=== PATIENT | female | born 1950 | race Caucasian/White ===

== ENCOUNTER 2024-09-06 14:11 | Inpatient (IN) | payer OTHER, SELFPAY ==
[2024-09-06] VITALS (10 sets, daily range): BP systolic 133–194; BP diastolic 55–99; BMI 33.2; BMI 31.6
[2024-09-06] MEDS: ZOFRAN 4 MG PO (08:32)
--- NOTE | 2024-09-06 08:56 | ED.GENMED ---
History of Present Illness
General
Chief Complaint: Allergic Reaction
Time Seen by Provider: 09/06/24 08:06
History of Present Illness
History of Present Illness:
73-year-old female with history of asthma presenting for concern of allergic reaction. Patient reports that yesterday she started vomiting around 6 PM. Notes that she ate lunch around 1 PM and afterwards started to feel ill, followed by vomiting.
She was concerned because this morning she felt like her lip was getting swollen and she thought that maybe she was having allergic reaction to Levaquin which she had been taking for a wound on her right lower extremity. However she has been taking
this medication for the last week and finished the medication today. The wound has completely healed. She does note some dyspnea. Notes persistent nausea and vomiting. Notes some abdominal discomfort. She is unsure whether her symptoms are from
something she ate at lunch. Denies chest pain. Denies any recent fever. Denies additional acute medical complaints
Past History
Past History
ED Past Medical History: Asthma and HTN
Social History
Personal:
Living: with family
Employment: Retired
Phy Exam
Physical Exam
Physical Exam:
General: Well-appearing, no clinical signs of dehydration, nontoxic and in no acute distress
HEENT: protecting airway, no lip swelling, no tongue swelling, no erythema
Neck: appears supple
CV: Tachycardia, regular rhythm, no evidence of cyanosis
Resp: No accessory muscle use, no increased work of breathing, lungs clear to auscultation bilaterally
Abd: Soft and non-distended, no tenderness to palpation
Extremities: No deformities, no swelling, no erythema. No wounds to lower extremities
Neuro: alert, no focal neurologic deficit
: deferred
Rectal: deferred
Psych: Normal affect
Skin: Intact
Course
Orders/Labs/Results
Orders:
Orders
09/06/24 08:27
Ondansetron HCl [Zofran] 4 mg PO NOW STA
09/06/24 09:02
Prochlorperazine [Compazine] 10 mg IM NOW STA
09/06/24 09:31
Ipratropium/Albuterol Sulfate [Duoneb] 3 ml INH R NOW STA
CR Chest - 2 Views Urgent
Comment:
Reason For Exam: SOB
09/06/24 10:18
CT Abd/pel Without Iv Or Oral Urgent
Comment:
Reason For Exam: nausea and vomiting, refusing and IV
09/06/24 11:44
NG Tube [GI tube insertion- Treatment] ONCE
Complete Blood Count/With Diff Urgent
Comprehensive Metabolic Panel Urgent
Lorazepam [Ativan] 1 mg PO NOW STA
Vital Signs
Initial and Last Documented VS:
Initial Vital Signs
Pulse Resp BP Pulse Ox
111 16 194/95 94
09/06/24 07:51 09/06/24 07:51 09/06/24 07:51 09/06/24 07:51
Last Documented Vital Signs
Temp Pulse Resp BP Pulse Ox
98.1 F 108 24 181/88 98
09/06/24 08:06 09/06/24 10:42 09/06/24 10:42 09/06/24 10:42 09/06/24 10:42
MDM/Problems Addressed
MDM/Problems Addressed:
73-year-old female with history of asthma presenting with nausea and vomiting. Vital signs on arrival are significant for hypertension and tachycardia.
On exam, patient is in no acute distress, is actively spitting up, however no emesis. She does have mildly dry mucous membranes. However, no swelling to the lips or tongue. No erythema or skin breakdown. Unremarkable cardiac and pulmonary exam
with the exception of mild tachycardia. No tenderness to the abdomen. Without present concern for acute allergic reaction or anaphylaxis. Patient notes that the antibiotic that she took, has been taking for an entire week. Do not suspect that
that is the culprit. Reports she started to feel unwell after she ate lunch. Do suspect possible enteritis and foodborne illness. Without concern for intra-abdominal process or infection. Given her persistent nausea, advising IV fluids and IV
Zofran with screening laboratory analysis. Patient is adamantly refusing, reports fear of needles. She would like to try p.o. Zofran.
10:10 -patient complaining of shortness of breath so chest x-ray obtained, shows elevated right hemidiaphragm with large hiatal hernia which could be contributing to symptoms, however layering of fluid. Cannot safely rule out a bowel obstruction.
At this time recommending a CT abdomen pelvis. Patient is adamantly refusing an IV. She notes that she would 'rather in pain and get an IV. Patient understands that CT without IV contrast is limits our ability to completely see and rule out a
bowel obstruction. She verbalized understanding.
11:45 - CT shows large sliding-type hiatal hernia with complete intrathoracic stomach and associated organoaxial volvulus of intrathoracic stomach which is markedly distended with fluid and debris suggesting an obstructive process. Will try NG
tube. Surgery made aware. Plan for admission.
*Critical Care Note
Total Time (30-74mins, 75-104mins- exclusive of procedures): Not Applicable
ED Attending Note
-
Portions of this chart may have been created with voice recognition software.� Occasional wrong word or��sound alike� substitutions may have occurred due to the inherent limitations of voice recognition software.
Discharge Plan
Departure
Referrals:
UNKNOWN - PT DOES,NOT KNOW [Family Provider] -
Interventions
Interventions:
*Risk Screen - Suicide Last Done: 09/06/24 07:51
*General Assessment Last Done: 09/06/24 07:51
*Neglect/Abuse Screening Last Done: 09/06/24 07:51
ED- Fall Risk Assessment Last Done: 09/06/24 08:07
*ED COVID-19 Vaccine History Last Done: 09/06/24 08:07
ED- Cardiac Assessment Last Done: 09/06/24 08:07
ED- Pulmonary Assessment Last Done: 09/06/24 08:07
ED-Skin Assessment Last Done: 09/06/24 08:11
Discharge Date and Time
Print Language: AZERBAIJANI
[2024-09-06] MEDS: COMPAZINE 10 MG IM (09:19)
[2024-09-06] MEDS: DUONEB 3 ML INH (09:33)
[2024-09-06] MEDS: ATIVAN 1 MG PO (11:50)
--- NOTE | 2024-09-06 12:25 | CON.GS ---
Addendum entered and electronically signed by Hernan Bermudez MD 09/06/24 15:25:
I saw and examined the patient.
The [employer] Supervisor's note was reviewed and I agree with the note.
Comment: 73F with acute onset abd pain a/w n/v that began last night. No prior similar episodes, reports no hospital visits in 40 years. She has taken PPI in the past for reflux but stopped due to concerns about risk of prison use and has been
doing well with a probiotic in the meantime. NGT placed in ED with return of 850cc dark burgundy fluid with immediate relief of symptoms. During my encounter she reports resolution of pain and nausea. Abd exam is benign. She requests throat
lozenge/spray for tube irritation. I will order, and also add protonix BID for now given the character of the ngt output. Tentative plan for decompression tonight, UGI tomorrow. I advised her going fwd the PPI is probably more benefit than risk in
her case and [facility] would likely benefit from going back on it. All other care as per primary team.
Original Note:
Consultation
-
Date/Time Consultation Requested: 09/06/24 1148
Requesting Provider: Otilia
Performing Provider: Cary Bermudez
Medical History
-
Chief Complaint: upper abdominal pain, cough
History of Present Illness:
Ms Landry is a 73 yo female who has a h/o asthma, OAB, GERD and htn who recently completed a course of abx for cellulitis and after her follow up appointment with her PCP yesterday went out for lunch with her spouse. She had a cup of soup with
half of a turkey club sandwich and shortly after developed diaphragmatic discomfort with vomiting. She notes recurrent vomiting throughout the rest of the day and today as well causing her to present through the ED for evaluation. She notes that she
often feels she is regurgitating food and has been on antacids for symptomatic control. She complains of a dry cough currently but denies SOB. She had one episode of diarrhea this morning. She denies fevers or chills.
Past Medical History
Past Medical History: Asthma, GERD, HTN and Other (oab, cellulitis)
Past Surgical History: Orthopedic (ankle surgery as a child) and Other (wisdom teeth)
Social History
Tobacco: Non-Smoker
Alcohol: None
Personal:
Living: With Family
Allergies / Home Medications
Allergy/AdvReac Type Severity Reaction Status Date / Time
Penicillins Allergy Unknown Verified 09/06/24 07:50
Shellfish *RETIRED-05/08/12 Allergy Unknown Verified 09/06/24 07:50
[Shellfish]
peanuts Allergy Unknown Uncoded 09/06/24 07:50
tree nuts Allergy Nausea / Uncoded 09/06/24 07:50
Vomiting
�Medication �Instructions �Recorded �Confirmed �Type
Fermented Beets 1 cap PO DAILY 09/06/24 09/06/24 History
albuterol sulfate 90 mcg/actuation 2 puff inhalation R Q6HPRN PRN SOB 09/06/24 09/06/24 History
aerosol inhaler
ascorbic acid (vitamin C) 500 mg 500 mg PO DAILY 09/06/24 09/06/24 History
tablet (Vitamin C)
azelastine 137 mcg (0.1 %) nasal 1 spray intranasal BID 09/06/24 09/06/24 History
spray
biotin 5 mg tablet 5 mg PO DAILY 09/06/24 09/06/24 History
calcium carbonate 500 mg PO DAILY 09/06/24 09/06/24 History
cholecalciferol (vitamin D3) 25 25 mcg PO DAILY 09/06/24 09/06/24 History
mcg (1,000 unit) tablet (Vitamin
D3)
diphenhydramine HCl 25 mg capsule 25 mg PO BID 09/06/24 09/06/24 History
(Benadryl)
elderberry fruit 200 mg capsule 200 mg PO DAILY 09/06/24 09/06/24 History
fluticasone furoate 100 1 inh inhalation R DAILY 09/06/24 09/06/24 History
mcg/actuation blister powder for
inhalation (Arnuity Ellipta)
fluticasone propionate 50 1 spray intranasal BID 09/06/24 09/06/24 History
mcg/actuation nasal
spray,suspension
lutein 20 mg capsule 20 mg PO DAILY 09/06/24 09/06/24 History
lysine 500 mg tablet 500 mg PO DAILY 09/06/24 09/06/24 History
naproxen sodium 220 mg tablet 220 mg PO DAILY 09/06/24 09/06/24 History
(Aleve)
pseudoephedrine-guaifenesin ER 120 1 tab PO Q12H 09/06/24 09/06/24 History
mg-1,200 mg tab,extend release
12hr (Mucinex D Maximum Strength)
spironolactone 25 mg tablet 25 mg PO DAILY 09/06/24 09/06/24 History
tolterodine 4 mg capsule,extended 4 mg PO DAILY 09/06/24 09/06/24 History
release 24 hr
vit C 30 mg-s.hendrickson 250 mg-celery 1 cap PO DAILY 09/06/24 09/06/24 History
seed 75 mg-grape seed extrt
capsule (Tart Hendrickson)
Review of Systems
-
A 10 point review of systems was completed, and was negative except as per HPI.
Physical Exam
Vital Signs
Temp Pulse Resp BP Pulse Ox
98.1 F 108 20 174/99 99
09/06/24 08:06 09/06/24 11:57 09/06/24 11:57 09/06/24 11:57 09/06/24 11:57
09/05/24 09/06/24 09/07/24
06:59 06:59 06:59
Actual Weight 81 kg
Body Mass Index (BMI) 33.2
Physical Exam
General: Well Developed and Well Nourished
HEENT: Moist Mucous Membranes
Respiratory: Non Labored Respirations
GI: Soft, Non Distended and Tender (upper epigastric area)
Skin: Warm and Dry
Neuro: Awake, Alert and AO x 3
Psych: Calm
Data Reviewed
-
CT Scan: Image Personally Visualized and interpreted, Report Reviewed by me, Discussed with Physician, Discussed with Nurse, Discussed with Patient and Discussed with Family
Labs: Labs Reviewed by me, Discussed with Physician, Discussed with Patient and Discussed with Family
Old Records: Reviewed
Assessment / Plan
-
Ms Landry is a 73 yo female who has a h/o asthma, OAB, GERD and htn who recently completed a course of abx for cellulitis who developed nausea and vomiting after lunch yesterday with epigastric pain presenting for evaluation. CT imaging reviewed
with large hiatal hernia with complete intrathoracic stomach and associated volvulus with distention debris suggestive of GOO.
Afebrile with mild tachycarida. BP elevated. She initially declined labs, but is now agreeable to having them preformed.
--Would recommend NGT placement for gastric decompression, patient is agreeable to proceeding. Check XR after placement.
--Will plan UGI imaging after decompression
--NPO except ice chips for comfort. Would convert necessary PO medications to IV
--Discussed operative hiatal hernia repair vs gastropexy as options for definitive management. Timing TBD pending patient course.
[2024-09-06 13:18] LABS: % Basophils 0.1 % (0-2); % Immature Granulocytes 0.5 % (0-0.5); % Lymphocytes 6.5 % (20.5-51.1); % Monocytes 7.8 % (1.7-9.3); % Neutrophils 85.1 % (42.2-75.2); Absolute Immature Granulocytes 0.1 10^3/uL (0-0.05); Absolute Monocytes 1.2 10^3/uL (0.1-0.6); Absolute Neutrophils 12.8 10^3/uL (1.4-6.5); Hematocrit 45.9 % (37.0-47.0); Hemoglobin 16.1 g/dL (12.0-16.0); Mean Corp Hgb Conc. 35.1 g/dL (33.0-37.0); Mean Corpuscular Hgb 30.6 pg (27.0-31.0); Mean Corpuscular Volume 87.3 fL (81.0-99.0); Mean Platelet Volume 9.9 fL (7.4-10.4); Nucleated Red Blood Cells % 0 %; Platelet Count 328 10^3/uL (130-400); Red Blood Cell Count 5.26 10^6/uL (4.20-5.40); Red Cell Dist. Width 13.3 % (11.5-14.5)
--- NOTE | 2024-09-06 14:02 | HPS.HSE ---
Family Physician
-
Family Physician: NOT KNOW UNKNOWN - PT DOES
Chief Complaint
-
Nausea and vomiting.
History of Present Illness
Patient is a 73-year-old female with history of asthma, GERD, hypertension who presented to the emergency room with acute onset of nausea and vomiting. Patient recently completed course of antibiotics for cellulitis. She developed acute onset of
nausea and vomiting after having lunch with soup and sandwich. In addition to that she also developed upper abdominal pain and discomfort. She denies any fever. She admits to occasional and increased frequency of gastrointestinal symptoms
including reflux. She complains of occasional dry cough, denies any fever. Denies any diarrhea.
With workup in the emergency room patient had chest x-ray which showed air-fluid levels above the diaphragm. Follow-up CT scan of the abdomen, findings were consistent with large sliding hernia with complete intrathoracic stomach associated
organoaxial volvulus of intrathoracic stomach which was markedly distended with fluid and debris suggestive of obstructive process.
NG tube was placed urgently while in the ED with significant relief of symptoms and ongoing high output.
Medical History
Past Medical History
Past Medical History: Reports Asthma, GERD and HTN
Past Surgical History: Reports None
Social History
Tobacco: Non-smoker
Alcohol: None
Family History
Family History: Not pertinent
Allergies / Home Medications
Allergies reflects when Allergies were last updated in [facility].
Home Medications with original date entered in [facility]
Allergy/Medication List:
Allergies
Allergy/AdvReac Type Severity Reaction Status Date / Time
Penicillins Allergy Unknown Verified 09/06/24 07:50
Shellfish *RETIRED-05/08/12 Allergy Unknown Verified 09/06/24 07:50
[Shellfish]
peanuts Allergy Unknown Uncoded 09/06/24 07:50
tree nuts Allergy Nausea / Uncoded 09/06/24 07:50
Vomiting
Home Medications
Fermented Beets 1 cap PO DAILY 09/06/24
albuterol sulfate 90 mcg/actuation aerosol inhaler 2 puff inhalation R Q6HPRN PRN SOB 09/06/24
ascorbic acid (vitamin C) 500 mg tablet (Vitamin C) 500 mg PO DAILY 09/06/24
azelastine 137 mcg (0.1 %) nasal spray 1 spray intranasal BID 09/06/24
biotin 5 mg tablet 5 mg PO DAILY 09/06/24
calcium carbonate 500 mg PO DAILY 09/06/24
cholecalciferol (vitamin D3) 25 mcg (1,000 unit) tablet (Vitamin D3) 25 mcg PO DAILY 09/06/24
diphenhydramine HCl 25 mg capsule (Benadryl) 25 mg PO BID 09/06/24
elderberry fruit 200 mg capsule 200 mg PO DAILY 09/06/24
fluticasone furoate 100 mcg/actuation blister powder for inhalation (Arnuity Ellipta) 1 inh inhalation R DAILY 09/06/24
fluticasone propionate 50 mcg/actuation nasal spray,suspension 1 spray intranasal BID 09/06/24
lutein 20 mg capsule 20 mg PO DAILY 09/06/24
lysine 500 mg tablet 500 mg PO DAILY 09/06/24
naproxen sodium 220 mg tablet (Aleve) 220 mg PO DAILY 09/06/24
pseudoephedrine-guaifenesin ER 120 mg-1,200 mg tab,extend release 12hr (Mucinex D Maximum Strength) 1 tab PO Q12H 09/06/24
spironolactone 25 mg tablet 25 mg PO DAILY 09/06/24
tolterodine 4 mg capsule,extended release 24 hr 4 mg PO DAILY 09/06/24
vit C 30 mg-s.chandra 250 mg-celery seed 75 mg-grape seed extrt capsule (Tart Chandra) 1 cap PO DAILY 09/06/24
Review of Systems
-
A 12 point ROS was completed and negative except as noted: Yes
Respiratory: Reports See HPI
Cardiac: Reports No Symptoms
Abdomen/GI: Reports See HPI
Physical Exam
Vital Signs
Vital Signs
Temp Pulse Resp BP Pulse Ox
98.1 F 108 20 174/99 99
09/06/24 08:06 09/06/24 11:57 09/06/24 11:57 09/06/24 11:57 09/06/24 11:57
Physical Exam
General: Well Developed, Well Nourished and No Apparent Distress
HEENT: NormoCephalic, Moist mucous membranes and Atraumatic
Respiratory: Clear
Cardiac: S1/S2 and Regular Rhythm; No Murmur or Rub
GI: Soft, Non Tender, Non Distended, Normal Bowel Sounds and Other (NG tube is in place with bilious fluid output); No Organomegaly
Rectal: Deferred by Provider
Musculoskeletal: No Clubbing, No Cyanosis and No Edema
Skin: No Rash
Neuro: Nonfocal/grossly intact
Laboratory Results
-
09/06/24 13:02
Laboratory Results
Total Bilirubin Cancelled 09/06/24 13:02
AST Cancelled 09/06/24 13:02
ALT Cancelled 09/06/24 13:02
Alkaline Phosphatase Cancelled 09/06/24 13:02
Impression/Plan
-
IMPRESSION:
Presentation with nausea and vomiting.
Large sliding-type hiatal hernia with complete intrathoracic stomach and associated organoaxial volvulus of intrathoracic stomach with gastric outlet obstruction.
Leukocytosis
Other conditions:
GERD
Asthma.
Hypertension.
Overactive bladder
Obesity with BMI of 33
PLAN:
Acute gastric outlet obstruction secondary to large sliding-type hiatal hernia.
NG tube in place
Surgical consult
Further evaluation with upper gastrointestinal series
Keep n.p.o.
IV PPI
Aspiration precautions
Leukocytosis likely secondary to above
No visible infiltrates on the chest x-ray, although suboptimal study.
Monitor closely off antibiotics
Mild intermittent asthma.
No evidence for exacerbation.
Continue albuterol
Hypertension
Hold Aldactone acutely.
Overactive bladder.
Hold tolterodine acutely.
Full code
DVT prophylaxis subcu heparin
[2024-09-06 14:30] LABS: Blood Urea Nitrogen 20 mg/dl (7-17); Calcium 10.1 mg/dl (8.4-10.2); Carbon Dioxide 35 mmol/L (22-30); Chloride 101 mmol/L (98-107); Estimated Creatinine Clearance 43 ml/min; Glucose 139 mg/dl (70-99); Sodium 147 mmol/L (135-145)
[2024-09-06] MEDS: OCEAN, SALINE MIST 2 SPRAYS NASAL (17:25)
[2024-09-06] MEDS: NSS 1000 IV (17:27)
[2024-09-06] MEDS: ProAIR HFA INHALER 2 PUFF INH (17:29)
[2024-09-06] MEDS: CHLORASEPTIC/SORE THROAT SPRAY 2 SPRAY PO (17:29)
--- NOTE | 2024-09-06 20:05 | PTCARENOTE ---
patient arrived from ED to [facility]. pt is AAOx3, very pleasant, NGT to R nare in place, attached to wall suction per order. drsg changed to healing wound on R oneil. plan of care explained to patient. Assessment ongoing.
[2024-09-06] MEDS: HEPARIN 5000 UNITS SC (20:56)
[2024-09-06] MEDS: NSS (PRESERVATIVE FREE) 10 ML IV (20:56)
[2024-09-06] MEDS: PROTONIX IV 40 MG IV (20:56)
[2024-09-07] MEDS: NSS 1000 IV ×2 (04:12→13:43)
--- NOTE | 2024-09-07 06:41 | PTCARENOTE ---
patient currently refusing morning lab work.
[2024-09-07 07:25] VITALS: BP 144/76
[2024-09-07] MEDS: HEPARIN 5000 UNITS SC ×2 (07:54→20:05)
[2024-09-07] MEDS: PROTONIX IV 40 MG IV ×2 (07:54→20:06)
[2024-09-07] MEDS: NSS (PRESERVATIVE FREE) 10 ML IV ×2 (07:54→20:06)
[2024-09-07] MEDS: OCEAN, SALINE MIST 2 SPRAYS NASAL (07:54)
[2024-09-07] MEDS: ProAIR HFA INHALER 2 PUFF INH (09:24)
--- NOTE | 2024-09-07 09:32 | W.PN.GS2 ---
Addendum entered and electronically signed by Zach Daniel MD 09/07/24 14:58:
Patient seen and examined with AUTOMATIC ENGRAVER this a.m.
Nausea/vomiting resolved.
No epigastric abdominal pain or substernal chest pain.
Ongoing shortness of breath
AFVSS
NAD AAOx3
ABD: Soft, nondistended, nontender
NG tube with light gastric contents
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
She has responded well to NG tube decompression. Continue n.p.o. and decompression
Will need follow-up contrast imaging study to evaluate for resolution of gastric outlet obstruction before considering removal of NG tube or p.o. challenge
Given the size of this paraesophageal hernia and degree that it is occupying the right chest will likely refer for tertiary care surgical evaluation but await further imaging before definitive planning.
Original Note:
Today's Communication / Plan
-
Continue NGT
Assessment / Plan
-
73 yo female presenting with GOO secondary to gastric volvulus within a large PEH.
NGT placed for decompression with large volume initially and some burgundy outputs in ED, now slowed with yellow gastric contents noted
AFVSS
Labs for today pending
--Continue NGT for decompression
--NPO with ice chips for comfort
--IVF while NPO
--Will plan PO contrast study to reevaluate likely tomorrow
--Medical management as per primary team
Subjective Data
-
Date of Service: September 07, 2024
Patient seen and examined at bedside with Dr. Daniel. Denies n/v. Denies abdominal/epigastric pain. Does note some SOB.
Objective Data
-
Intake and Output
09/06/24 09/07/24 09/08/24
06:59 06:59 06:59
Intake Total 1260 / 1260
Output Total 1774
Balance -515 / -515
Intake:
IV fluids (Total) 1200 / 1200
Amount instilled into GI Tube ( 60 / 60
Total)
Gastrostomy 60 / 60
Output:
Gastrointestinal tube output ( 1774
Total)
Gastrostomy 175 / 175
Other:
Number of approximated MODERATE 2
amounts of urine
Vital Signs
Temp Pulse Resp BP Pulse Ox
98.7 F 66 16 144/76 93
09/07/24 07:25 09/07/24 09:29 09/07/24 09:29 09/07/24 07:25 09/07/24 09:29
Calcium 10.1 mg/dl (8.4-10.2) 09/06/24 14:05
Total Bilirubin Cancelled 09/06/24 14:05
AST Cancelled 09/06/24 14:05
ALT Cancelled 09/06/24 14:05
Alkaline Phosphatase Cancelled 09/06/24 14:05
Total Protein Cancelled 09/06/24 14:05
Albumin Cancelled 09/06/24 14:05
Physical Exam
-
NAD
ABD soft, nt, nd
Gastric contents from NGT
Patient has a charlton catheter: No
Patient has a central line: No
[2024-09-07] MEDS: NON-FORMULARY ITEM 1 UNIT NASAL ×3 (10:34→20:06)
--- NOTE | 2024-09-07 11:48 | W.PN.HOSP.TC ---
Today's Communication/Plan
-
Monitor vitals
See plan
Awaiting labs
Continue with NG tube
Surgery following
Okay for ice chips
Assessment / Plan
Assessment / Plan
General: Well Developed, Well Nourished and No Apparent Distress
HEENT: NormoCephalic, Moist mucous membranes and Atraumatic
Respiratory: Clear
Cardiac: S1/S2 and Regular Rhythm; No Murmur or Rub
GI: Soft, Non Tender, Non Distended, Normal Bowel Sounds and Other (NG tube is in place with bilious fluid output)
Musculoskeletal: No Edema
Neuro: Nonfocal/grossly intact
IMPRESSION:
Presentation with nausea and vomiting.
Large sliding-type hiatal hernia with complete intrathoracic stomach and associated organoaxial volvulus of intrathoracic stomach with gastric outlet obstruction.
Leukocytosis
Other conditions:
GERD
Asthma.
Hypertension.
Overactive bladder
Obesity with BMI of 33
PLAN:
Acute gastric outlet obstruction secondary to large sliding-type hiatal hernia.
NG tube in place; monitor drain
Surgery following
Further evaluation with upper gastrointestinal series
Keep n.p.o. ok for ice chips
IV PPI
Aspiration precautions
Leukocytosis likely secondary to above
No visible infiltrates on the chest x-ray, although suboptimal study.
Monitor closely off antibiotics
repeat CBC today; patient refusing labs
Mild intermittent asthma.
No evidence for exacerbation.
Continue albuterol
Hypertension
Hold Aldactone acutely.
Overactive bladder.
Hold tolterodine acutely.
Full code
DVT prophylaxis subcu heparin
Anticipated Discharge: 24 - 48 hours
Subjective/Interval History
-
Date of Service: September 07, 2024
Still has output from NG tube
Objective Data
-
Labs:
Laboratory Results
09/07/24
06:00
WBC Pending
Hgb Pending
Hct Pending
Plt Count Pending
Sodium Pending
Potassium Pending
Chloride Pending
Carbon Dioxide Pending
BUN Pending
Creatinine Pending
Glucose Pending
Calcium Pending
Vital Signs:
Vital Signs
Temp Pulse Resp BP Pulse Ox
98.7 F 66 16 144/76 93
09/07/24 07:25 09/07/24 09:29 09/07/24 09:29 09/07/24 07:25 09/07/24 09:29
I&O
09/06/24 09/07/24 09/08/24
06:59 06:59 06:59
Intake Total 1260 / 1260
Output Total 1775 / 1775
Balance -515 / -515
--- NOTE | 2024-09-07 12:02 | PTCARENOTE ---
Pt continuing to refuse labwork, stated ' no' per the plebotomist upon repeat attempt. RN in to see pt. Pt stated ' it frightens me too much'. RN explained that initial blood work may not still reflect current clinical situation and accurate values
are required to determine care. RN explained with decompression, pts lose electrolytes including potassium and the importance of potassium in regulating cardiac function. Pt continuing to shake her head no and stating ' it scares me too much'.
Willard made aware. Assessment ongoing.
[2024-09-07] MEDS: DUONEB 3 ML INH ×2 (12:37→20:50)
[2024-09-07 15:10] VITALS: BP 150/79
[2024-09-07 23:40] VITALS: BP 162/80
[2024-09-08] MEDS: NSS 1000 IV ×2 (00:01→09:06)
[2024-09-08] MEDS: DUONEB 3 ML INH ×2 (04:02→08:06)
--- NOTE | 2024-09-08 07:06 | PTCARENOTE ---
patient is refusing morning lab work. patient was educated.
[2024-09-08 07:15] VITALS: BP 167/81
[2024-09-08] MEDS: ProAIR HFA INHALER 2 PUFF INH (08:07)
[2024-09-08] MEDS: NSS (PRESERVATIVE FREE) 10 ML IV ×2 (08:53→19:37)
[2024-09-08] MEDS: NON-FORMULARY ITEM 1 UNIT NASAL ×3 (08:54→19:36)
[2024-09-08] MEDS: PROTONIX IV 40 MG IV ×2 (08:54→19:37)
[2024-09-08] MEDS: HEPARIN 5000 UNITS SC ×2 (08:54→19:37)
--- NOTE | 2024-09-08 08:57 | W.PN.GS2 ---
Today's Communication / Plan
-
Follow-up imaging
Assessment / Plan
-
Assessment: 73 yo female presenting with GOO secondary to gastric volvulus within a large type IV PEH containing entire stomach as well as portions of colon.
AFVSS
Given quantity of NG tube outputs and consumption of ice chips suspect gastric outlet obstruction has been relieved with NG tube decompression
Plan: Repeat CT imaging (chest abdomen pelvis -oral contrast alone -1 cup with NG tube clamped for study; return NG tube to suction if nausea or worsening pain with oral contrast ingestion)
Include imaging of chest as initial imaging did not entirely show paraesophageal hernia due to size; will also study with oral contrast to confirm that obstructive component of paraesophageal hernia has been alleviated.
If no evidence of ongoing obstruction with CT imaging NG tube will be removed and patient will be started on a liquid diet
Surgical treatment plan (possible referral to tertiary care center for repair) pending CT imaging results and size of paraesophageal hernia which appears to be occupying most of the right chest with quite a large diaphragmatic defect.
Subjective Data
-
Date of Service: September 08, 2024
Patient seen and examined. at bedside.
Discussed with nursing.
Predominant symptom is shortness of breath
Concern regarding home medications and requesting nasal sprays
No nausea, no vomiting
Consuming ice chips
No abdominal pain
Objective Data
-
Intake and Output
09/07/24 09/08/24 09/09/24
06:59 06:59 06:59
Intake Total 1260 / 1260 2550 / 2550
Output Total 1775 / 1775 900 / 900
Balance -515 / -515 1650 / 1650
Intake:
IV fluids (Total) 1200 / 1200 2400 / 2400
Amount instilled into GI Tube ( 60 / 60 150 / 150
Total)
Gastrostomy 60 / 60 30 / 30
[place] Sump 120 / 120
Output:
Gastrointestinal tube output ( 1775 / 1775 900 / 900
Total)
Gastrostomy 175 / 175 450 / 450
[place] Sump 450 / 450
Other:
Number of approximated MODERATE 2 2
amounts of urine
Number of approximated LARGE 3
amounts of urine
Vital Signs
Temp Pulse Resp BP Pulse Ox
98.8 F 85 16 167/81 96
09/08/24 07:15 09/08/24 08:09 09/08/24 08:09 09/08/24 07:15 09/08/24 08:09
Calcium Cancelled 09/07/24 17:14
Total Bilirubin Cancelled 09/06/24 14:05
AST Cancelled 09/06/24 14:05
ALT Cancelled 09/06/24 14:05
Alkaline Phosphatase Cancelled 09/06/24 14:05
Total Protein Cancelled 09/06/24 14:05
Albumin Cancelled 09/06/24 14:05
Physical Exam
-
NAD AAOx3
NG tube to wall suction -light gastric contents
[2024-09-08 09:01] LABS: Blood Urea Nitrogen 16 mg/dl (7-17); Calcium 8.3 mg/dl (8.4-10.2); Carbon Dioxide 24 mmol/L (22-30); Chloride 112 mmol/L (98-107); Estimated Creatinine Clearance 42 ml/min; Glucose 74 mg/dl (70-99); Potassium 3.3 mmol/L (3.5-5.1); Sodium 147 mmol/L (135-145)
[2024-09-08] MEDS: OMNIPAQUE 50 ML PO (09:22)
[2024-09-08 09:42] LABS: % Basophils 0.3 % (0-2); % Eosinophils 0.7 % (0-6); % Immature Granulocytes 0.4 % (0-0.5); % Lymphocytes 15.9 % (20.5-51.1); % Monocytes 11.7 % (1.7-9.3); Absolute Eosinophils 0.1 10^3/uL (0-0.7); Absolute Lymphocytes 1.5 10^3/uL (1.2-3.4); Absolute Monocytes 1.1 10^3/uL (0.1-0.6); Absolute Neutrophils 6.5 10^3/uL (1.4-6.5); Hematocrit 39.2 % (37.0-47.0); Hemoglobin 13.1 g/dL (12.0-16.0); Mean Corp Hgb Conc. 33.4 g/dL (33.0-37.0); Mean Corpuscular Hgb 30.1 pg (27.0-31.0); Mean Corpuscular Volume 90.1 fL (81.0-99.0); Nucleated Red Blood Cells % 0 %; Red Blood Cell Count 4.35 10^6/uL (4.20-5.40); Red Cell Dist. Width 14.2 % (11.5-14.5); White Blood Cell Count 9.2 10^3/uL (4.8-10.8)
--- NOTE | 2024-09-08 10:00 | CM ---
Patient seen with today and yesterday am. Patient lives with in a 3 story home. Patient has no DME at home. Patient PCP is unchanged and she uses the [facility] on [address] in [place]. Patient states she is independent of ADL's and
IADL's prior to admission. Patient may need VN at discharge. CM will continue to follow for discharge planning needs.
Plan; home with VN vs home with no needs.
--- NOTE | 2024-09-08 10:34 | W.PN.SURGUPD ---
Surgical Update
Surgical Update
Imaging reviewed. Radiologist report pending.
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 The body of the pancreas is also within the large paraesophageal hernia. Superior extent of the paraesophageal hernia is
above the level of the right main bronchus/immediately adjacent to the akil.
Remove NG tube given radiographic confirmation of obstructive component resolved
Clear liquid diet
Given complexity of this very large type IV paraesophageal hernia would manage conservatively during this hospitalization and refer to tertiary care center for future discussions regarding consideration of operative correction.
--- NOTE | 2024-09-08 11:48 | W.PN.HOSP.TC ---
Today's Communication/Plan
-
Monitor vital signs see plan
Restart Aldactone
Clears
Replete potassium
Assessment / Plan
Assessment / Plan
General: Well Developed, Well Nourished and No Apparent Distress
HEENT: NormoCephalic, Moist mucous membranes and Atraumatic
Respiratory: Clear
Cardiac: S1/S2 and Regular Rhythm; No Murmur or Rub
GI: Soft, Non Tender, Non Distended, Normal Bowel Sounds and Other (NG tube is in place with bilious fluid output)
Musculoskeletal: No Edema
Neuro: Nonfocal/grossly intact
IMPRESSION:
Presentation with nausea and vomiting.
Large sliding-type hiatal hernia with complete intrathoracic stomach and associated organoaxial volvulus of intrathoracic stomach with gastric outlet obstruction.
Leukocytosis
Hypernatremia
Hypokalemia
Renal insufficiency, unclear if has CKD
Other conditions:
GERD
Asthma.
Hypertension.
Overactive bladder
Obesity with BMI of 33
PLAN:
Acute gastric outlet obstruction secondary to large sliding-type hiatal hernia.
Now NG tube DC'd 07/09. Started clears. Managed conservatively per surgery. Patient should follow-up with tertiary care center
Surgery following
CT with large central and right paracentral diaphragmatic hernia, decompression of stomach, atelectasis. Substernal left thyroid nodule. Patient to follow-up outpatient.
Keep n.p.o. ok for ice chips
IV PPI
Aspiration precautions
Leukocytosis likely secondary to above
No visible infiltrates on the chest x-ray, although suboptimal study.
Monitor closely off antibiotics
repeat labs today; patient refusing labs, now agreeable today.
Hyponatremia
Monitor
Mild intermittent asthma.
No evidence for exacerbation.
Continue albuterol
Hypertension
restart Aldactone
Overactive bladder.
restart tolterodine
Full code
DVT prophylaxis subcu heparin
Anticipated Discharge: 24 - 48 hours
Subjective/Interval History
-
Date of Service: September 08, 2024
denies pain
Objective Data
-
Labs:
Laboratory Results
09/07/24 09/08/24
21:48 07:55
WBC Cancelled 9.2
Hgb Cancelled 13.1
Hct Cancelled 39.2
Plt Count Cancelled
Sodium 147 H
Potassium 3.3 L
Chloride 112 H
Carbon Dioxide 24
BUN 16
Creatinine 1.1 H
Glucose 74
Calcium 8.3 L D
Vital Signs:
Vital Signs
Temp Pulse Resp BP Pulse Ox
98.8 F 85 16 167/81 96
09/08/24 07:15 09/08/24 08:09 09/08/24 08:09 09/08/24 07:15 09/08/24 08:09
I&O
09/07/24 09/08/24 09/09/24
06:59 06:59 06:59
Intake Total 1260 / 1260 2550 / 2550
Output Total 1775 / 1775 900 / 900
Balance -515 / -515 1650 / 1650
[2024-09-08 12:18] VITALS: BP 170/101
[2024-09-08] MEDS: ALDACTONE 25 MG PO (12:23)
[2024-09-08] MEDS: KCL 20 MEQ PO (12:23)
[2024-09-08] MEDS: DETROL LA 4 MG PO (12:23)
[2024-09-08] MEDS: ZYRTEC 5 MG PO (12:59)
[2024-09-08] MEDS: MUCINEX 1200 MG PO ×2 (13:01→19:36)
[2024-09-08 15:15] VITALS: BP 163/98
[2024-09-08] MEDS: APRESOLINE 5 MG IV ×2 (15:40→23:17)
[2024-09-08 16:25] VITALS: BP 152/72
[2024-09-08 23:13] VITALS: BP 163/78
[2024-09-09] VITALS (7 sets, daily range): BP systolic 154–178; BP diastolic 72–96
[2024-09-09] MEDS: ANESTHETIC LOZENGE 1 LOZENGE PO ×3 (01:49→19:10)
[2024-09-09] MEDS: NSS 1000 IV (01:50)
[2024-09-09 07:51] LABS: % Basophils 0.2 % (0-2); % Eosinophils 4.4 % (0-6); % Immature Granulocytes 0.5 % (0-0.5); % Lymphocytes 18.4 % (20.5-51.1); % Monocytes 12.7 % (1.7-9.3); % Neutrophils 63.8 % (42.2-75.2); Absolute Eosinophils 0.4 10^3/uL (0-0.7); Absolute Lymphocytes 1.5 10^3/uL (1.2-3.4); Absolute Neutrophils 5.1 10^3/uL (1.4-6.5); Hematocrit 38.5 % (37.0-47.0); Hemoglobin 12.7 g/dL (12.0-16.0); Mean Corpuscular Hgb 29.6 pg (27.0-31.0); Mean Corpuscular Volume 89.7 fL (81.0-99.0); Nucleated Red Blood Cells % 0 %; Red Blood Cell Count 4.29 10^6/uL (4.20-5.40); Red Cell Dist. Width 14.3 % (11.5-14.5)
[2024-09-09 07:53] LABS: Blood Urea Nitrogen 11 mg/dl (7-17); Calcium 7.9 mg/dl (8.4-10.2); Carbon Dioxide 25 mmol/L (22-30); Chloride 108 mmol/L (98-107); Estimated Creatinine Clearance 51 ml/min; Glucose 85 mg/dl (70-99); Potassium 3.1 mmol/L (3.5-5.1); Sodium 140 mmol/L (135-145); eGFR > 60.00
[2024-09-09 08:10] LABS: Mean Platelet Volume 10.1 fL (7.4-10.4); Platelet Count 214 10^3/uL (130-400)
[2024-09-09] MEDS: ZYRTEC 5 MG PO (08:17)
[2024-09-09] MEDS: MUCINEX 1200 MG PO ×2 (08:17→20:43)
[2024-09-09] MEDS: ALDACTONE 25 MG PO (08:17)
[2024-09-09] MEDS: DETROL LA 4 MG PO (08:17)
[2024-09-09] MEDS: HEPARIN 5000 UNITS SC ×2 (08:19→20:43)
[2024-09-09] MEDS: PROTONIX IV 40 MG IV ×2 (08:20→20:44)
[2024-09-09] MEDS: NSS (PRESERVATIVE FREE) 10 ML IV ×2 (08:20→20:44)
[2024-09-09] MEDS: NON-FORMULARY ITEM 1 UNIT NASAL ×4 (08:27→20:52)
--- NOTE | 2024-09-09 10:09 | W.PN.GS2 ---
Today's Communication / Plan
-
FLD
Assessment / Plan
-
Assessment: 73 yo female presenting with GOO secondary to large type IV PEH containing entire stomach as well as portions of colon. Superior extent of the paraesophageal hernia is above the level of the right main bronchus/immediately adjacent to
the akil. The PEH appears to be occupying most of the right chest with quite a large diaphragmatic defect
Removed NG tube given radiographic confirmation of obstructive component resolved on 09/08
Tolerating Clears
AFVSS
Plan: Advance to full liquid diet with supplements. She will need to remain on Full liquids/soft foods (scrambled eggs consistency) residential until surgical repair can be preformed or indefinitely if she opts out of surgery
Surgical treatment plan: will refer to tertiary care center for repair upon discharge
Medical management as per primary team
Subjective Data
-
Date of Service: September 09, 2024
Patient seen and examined at bedside with Dr. Crisostomo. Denies n/v. Tolerating clears. Denies pain. Still with respiratory symptoms of sob.
Objective Data
-
Intake and Output
09/08/24 09/09/24 09/10/24
06:59 06:59 06:59
Intake Total 2550 / 2550 3440 / 3440
Output Total 900 / 900
Balance 1650 / 1650 3440 / 3440
Intake:
Oral fluids 1760 / 1760
IV fluids (Total) 2400 / 2400 1680 / 1680
Amount instilled into GI Tube ( 150 / 150
Total)
Gastrostomy 30 / 30
[place] Sump 120 / 120
Output:
Gastrointestinal tube output ( 900 / 900
Total)
Gastrostomy 450 / 450
[place] Sump 450 / 450
Other:
Number of approximated MODERATE 2 2
amounts of urine
Number of approximated LARGE 3 1
amounts of urine
Vital Signs
Temp Pulse Resp BP Pulse Ox
98.1 F 87 16 163/80 95
09/09/24 07:35 09/09/24 07:35 09/09/24 07:35 09/09/24 07:35 09/09/24 08:00
Lab Results
09/09/24 05:36
09/09/24 05:36
Calcium 7.9 mg/dl (8.4-10.2) L 09/09/24 05:36
Total Bilirubin Cancelled 09/06/24 14:05
AST Cancelled 09/06/24 14:05
ALT Cancelled 09/06/24 14:05
Alkaline Phosphatase Cancelled 09/06/24 14:05
Total Protein Cancelled 09/06/24 14:05
Albumin Cancelled 09/06/24 14:05
Physical Exam
-
NAD AAOx3
ABD soft, nt, nd
Patient has a charlton catheter: No
Patient has a central line: No
[2024-09-09] MEDS: KCL 40 MEQ PO (11:49)
--- NOTE | 2024-09-09 13:43 | CM ---
Reviewed the chart notes and spoke with the patient at the bedside. IMM reviewed. Patient anticipates being discharged to home with no additional needs being identified at this time. Per notes, surgical treatment plan: will refer to tertiary
care center for repair upon discharge.
Plan: Discharge to home with no additional needs identified at this time.
--- NOTE | 2024-09-09 15:42 | W.PN.HOSP.TC ---
Today's Communication/Plan
-
Full liquid diet
Monitor for recurrent obstruction
Repeat chest x-ray with no infiltrate.
Assessment / Plan
Assessment / Plan
IMPRESSION:
Presentation with nausea and vomiting.
Large sliding-type hiatal hernia with complete intrathoracic stomach and associated organoaxial volvulus of intrathoracic stomach with gastric outlet obstruction.
Leukocytosis
Hypernatremia
Hypokalemia
Renal insufficiency, unclear if has CKD
Other conditions:
GERD
Asthma.
Hypertension.
Overactive bladder
Obesity with BMI of 33
PLAN:
Acute gastric outlet obstruction secondary to large sliding-type hiatal hernia.
Now NG tube DC'd 07/09. Started clears. Managed conservatively per surgery. Patient should follow-up with tertiary care center
Surgery following
CT with large central and right paracentral diaphragmatic hernia, decompression of stomach, atelectasis. Substernal left thyroid nodule. Patient to follow-up outpatient.
Keep n.p.o. ok for ice chips
IV PPI
Aspiration precautions
Leukocytosis likely secondary to above
No visible infiltrates on the chest x-ray, although suboptimal study.
Monitor closely off antibiotics
Improved
Hyponatremia
Monitor
Mild intermittent asthma.
No evidence for exacerbation.
Continue albuterol
Hypertension
restart Aldactone
Overactive bladder.
restart tolterodine
Full code
DVT prophylaxis subcu heparin
Anticipated Discharge: 24 - 48 hours
Subjective/Interval History
-
Date of Service: September 09, 2024
Objective Data
-
Labs:
Laboratory Results
09/09/24
05:36
WBC 8.0
Hgb 12.7
Hct 38.5
Plt Count 214 D
Sodium 140
Potassium 3.1 L
Chloride 108 H
Carbon Dioxide 25
BUN 11
Creatinine 0.9
Glucose 85
Calcium 7.9 L
Vital Signs:
Vital Signs
Temp Pulse Resp BP Pulse Ox
98.1 F 87 16 154/82 95
09/09/24 07:35 09/09/24 07:35 09/09/24 07:35 09/09/24 11:03 09/09/24 08:00
I&O
09/08/24 09/09/24 09/10/24
06:59 06:59 06:59
Intake Total 2550 / 2550 3440 / 3440
Output Total 900 / 900
Balance 1650 / 1650 3440 / 3440
Physical Exam
-
General: Well Developed and No Apparent Distress
HEENT: Normocephalic, Atraumatic and Moist Mucous Membranes
Respiratory: Clear to Auscultation
Cardiac: Regular Rhythm and S1/S2; Negative Murmur, Rub or Gallop
GI: Soft, Nontender, Nondistended and Normal Bowel Sounds; Negative Organomegaly
Rectal: Deferred by Provider
Musculoskeletal: No Clubbing, No Cyanosis and No Edema
Skin: Negative Rash
Neuro: Nonfocal/Grossly Intact
[2024-09-09] MEDS: APRESOLINE 5 MG IV (15:51)
[2024-09-10 07:23] LABS: Blood Urea Nitrogen 7 mg/dl (7-17); Calcium 8.2 mg/dl (8.4-10.2); Carbon Dioxide 24 mmol/L (22-30); Chloride 108 mmol/L (98-107); Estimated Creatinine Clearance 58 ml/min; Glucose 84 mg/dl (70-99); Potassium 3.8 mmol/L (3.5-5.1); Sodium 140 mmol/L (135-145); eGFR > 60.00
[2024-09-10 07:25] LABS: % Basophils 0.3 % (0-2); % Eosinophils 4.9 % (0-6); % Immature Granulocytes 0.5 % (0-0.5); % Monocytes 12.9 % (1.7-9.3); % Neutrophils 64.4 % (42.2-75.2); Absolute Eosinophils 0.4 10^3/uL (0-0.7); Absolute Lymphocytes 1.3 10^3/uL (1.2-3.4); Hemoglobin 13.1 g/dL (12.0-16.0); Mean Corp Hgb Conc. 33.6 g/dL (33.0-37.0); Mean Corpuscular Hgb 29.9 pg (27.0-31.0); Mean Platelet Volume 10.2 fL (7.4-10.4); Nucleated Red Blood Cells % 0 %; Platelet Count 227 10^3/uL (130-400); Red Blood Cell Count 4.38 10^6/uL (4.20-5.40); Red Cell Dist. Width 14.1 % (11.5-14.5); White Blood Cell Count 7.8 10^3/uL (4.8-10.8)
[2024-09-10 07:33] VITALS: BP 172/80
[2024-09-10] MEDS: HEPARIN 5000 UNITS SC (08:34)
[2024-09-10] MEDS: MUCINEX 1200 MG PO (08:34)
[2024-09-10] MEDS: DETROL LA 4 MG PO (08:34)
[2024-09-10] MEDS: NSS (PRESERVATIVE FREE) 10 ML IV (08:34)
[2024-09-10] MEDS: NON-FORMULARY ITEM 1 UNIT NASAL (08:35)
[2024-09-10] MEDS: PROTONIX IV 40 MG IV (08:35)
[2024-09-10] MEDS: ALDACTONE 25 MG PO (08:35)
[2024-09-10] MEDS: ZYRTEC 5 MG PO (08:37)
[2024-09-10] MEDS: ANESTHETIC LOZENGE 1 LOZENGE PO (08:49)
--- NOTE | 2024-09-10 10:59 | W.DS.TRANS ---
DC Summary - [employer]
-
Discharge Instructions:
Discharge Diagnosis/Procedures Hiatal hernia with resolved GOO.
Severe GERD
Diet Supplements
Additional Diets Full liquid diet and soft foods (consistency of
scrambled eggs)
Activity No strenuous activity
Driving Restrictions As prior to admission
Instructions: Full liquid diet
Stand-Alone Forms:
Changes to Home Medications: Yes
Discharge Medications:
DC Medications w/original date entered in [employer]
Fermented Beets 1 cap PO DAILY 09/06/24
albuterol sulfate 90 mcg/actuation aerosol inhaler 2 puff inhalation R Q6HPRN PRN SOB 09/06/24
ascorbic acid (vitamin C) 500 mg tablet (Vitamin C) 500 mg PO DAILY 09/06/24
azelastine 137 mcg (0.1 %) nasal spray 1 spray intranasal BID 09/06/24
biotin 5 mg tablet 5 mg PO DAILY 09/06/24
calcium carbonate 500 mg PO DAILY 09/06/24
cholecalciferol (vitamin D3) 25 mcg (1,000 unit) tablet (Vitamin D3) 25 mcg PO DAILY 09/06/24
diphenhydramine HCl 25 mg capsule (Benadryl) 25 mg PO BID 09/06/24
elderberry fruit 200 mg capsule 200 mg PO DAILY 09/06/24
fluticasone furoate 100 mcg/actuation blister powder for inhalation (Arnuity Ellipta) 1 inh inhalation R DAILY 09/06/24
fluticasone propionate 50 mcg/actuation nasal spray,suspension 1 spray intranasal BID 09/06/24
lutein 20 mg capsule 20 mg PO DAILY 09/06/24
lysine 500 mg tablet 500 mg PO DAILY 09/06/24
pseudoephedrine-guaifenesin ER 120 mg-1,200 mg tab,extend release 12hr (Mucinex D Maximum Strength) 1 tab PO Q12H 09/06/24
spironolactone 25 mg tablet 25 mg PO DAILY 09/06/24
tolterodine 4 mg capsule,extended release 24 hr 4 mg PO DAILY 09/06/24
vit C 30 mg-s.chandra 250 mg-celery seed 75 mg-grape seed extrt capsule (Tart Chandra) 1 cap PO DAILY 09/06/24
pantoprazole 40 mg tablet,delayed release (Protonix) 40 mg PO DAILY #30 tabs 09/10/24
Home Medication Changes
PPI initiated
Pending Results: No
--- NOTE | 2024-09-10 11:39 | W.PN.GS2 ---
Today's Communication / Plan
-
-- Fulls with supplement shakes indefinitely
-- Surgical treatment plan: will refer to tertiary care center for repair upon discharge
Assessment / Plan
-
Assessment: 73 yo female presenting with GOO secondary to large type IV PEH containing entire stomach as well as portions of colon. Superior extent of the paraesophageal hernia is above the level of the right main bronchus/immediately adjacent to
the akil. The PEH appears to be occupying most of the right chest with quite a large diaphragmatic defect
Removed NG tube given radiographic confirmation of obstructive component resolved on 09/08
AFVSS
Tolerating fulls
Plan:
-- Fulls with supplement shakes indefinitely
-- Surgical treatment plan: will refer to tertiary care center for repair upon discharge
-- Medical management as per primary team
Subjective Data
-
Date of Service: September 10, 2024
Tolerating falls. No reports of dysphagia, nausea, or vomiting. Intermittent reflux symptoms. No fevers. No increased shortness of breath or chest pain.
Objective Data
-
Intake and Output
09/09/24 09/10/24 09/11/24
06:59 06:59 06:59
Intake Total 3440 / 3440 1410 / 1410 480 / 480
Balance 3440 / 3440 1410 / 1410 480 / 480
Intake:
Oral fluids 1760 / 1760 1230 / 1230 480 / 480
IV fluids (Total) 1680 / 1680 180 / 180
Other:
Number of approximated MODERATE 2 3 2
amounts of urine
Number of approximated LARGE 1
amounts of urine
Vital Signs
Temp Pulse Resp BP Pulse Ox
98.7 F 93 18 172/80 95
09/10/24 07:33 09/10/24 07:33 09/10/24 07:33 09/10/24 07:33 09/10/24 07:33
Lab Results
09/10/24 05:09
09/10/24 05:09
Calcium 8.2 mg/dl (8.4-10.2) L 09/10/24 05:09
Total Bilirubin Cancelled 09/06/24 14:05
AST Cancelled 09/06/24 14:05
ALT Cancelled 09/06/24 14:05
Alkaline Phosphatase Cancelled 09/06/24 14:05
Total Protein Cancelled 09/06/24 14:05
Albumin Cancelled 09/06/24 14:05
Physical Exam
-
Gen: NAD
Abd: soft, obese, NT/ND, non-peritoneal
Patient has a charlton catheter: No
Patient has a central line: No
[2024-09-10 12:22] VITALS: BP 156/95
--- NOTE | 2024-09-10 12:24 | CM ---
Reviewed the chart notes. Patient being discharged to home today. Patient's spouse to provide transportation.
Plan: Discharge to home today. No needs identified at this time.
== END 2024-09-10 15:30 | disposition home or self-care (01) | DRG 391 ==
LOC: 2 SOUTH 14:11
PROVIDERS: Internal Medicine; ADMITTING PHYSICIAN Internal Medicine; CONSULT PHYSICIAN Surgery; EMERGENCY PHYSICIAN Student in an Organized Health Care Education/Training Program
PROC: 0D9670Z Drainage of Stomach with Drainage Device, Via Natural or Artificial Opening (ICD-10-PCS; 2024-09-06)
DX: K44.9 Diaphragmatic hernia without obstruction or gangrene (principal); K56.2 Volvulus; K31.1 Adult hypertrophic pyloric stenosis; E87.0 Hyperosmolality and hypernatremia; K21.9 Gastro-esophageal reflux disease without esophagitis; I10 Essential (primary) hypertension; N32.81 Overactive bladder; Z68.33 Body mass index [BMI] 33.0-33.9, adult; E66.9 Obesity, unspecified; J45.20 Mild intermittent asthma, uncomplicated; E87.6 Hypokalemia
CPT/HCPCS: 43752; 71045; 71046; 71250; 74176; 80048; 85025; 94640; 96360; 96361; 96372; 99285

== ENCOUNTER 2024-09-23 21:06 | Inpatient (IN) | payer OTHER, SELFPAY ==
[2024-09-23] VITALS (11 sets, daily range): BP systolic 108–177; BP diastolic 47–151; BMI 32.9
--- NOTE | 2024-09-23 11:04 | ED.GENMED ---
History of Present Illness
General
Chief Complaint: Abdominal Symptoms
Time Seen by Provider: 09/23/24 10:55
History of Present Illness
History of Present Illness:
73-year-old female presents to the emergency department for evaluation of epigastric pain associated with vomiting beginning this morning. She was recently mated to this hospital approximately 2 weeks ago for gastric volvulus/gastric outlet
obstruction secondary to a large type IV paraesophageal hernia, underwent NG tube decompression was managed with conservative therapy at that time. She has been on a liquid diet since discharge but feels as though the liquid diet is too much volume
for her. Symptoms today are quite comparable to previous. She has had some bloody emesis this morning. She is insisting on receiving the lorazepam prior to undergoing treatment or venipuncture at this time
Past History
Past History
ED Past Medical History: Asthma and HTN
Social History
Personal:
Living: with family
Employment: Retired
Review of Systems
Review of Systems
Allergies reviewed?: Yes
All Other Systems: ROS reviewed and negative except as documented in HPI and ROS
Phy Exam
Physical Exam
Physical Exam:
GEN: Well appearing, NAD, WDWN
HEENT: Oral mucosa moist, no scleral icterus
Cardiac: Regular rate
Lung: No respiratory distress, no tachypnea
Abdomen: Soft, nondistended, grossly nontender
MSK: No gross deformity or injuries
Skin: Good color, no pallor or jaundice, no rashes
Neuro: AO x3, moves all extremities freely
Psych: Calm, cooperative
Course
Orders/Labs/Results
Orders:
Orders
09/23/24 11:04
Lorazepam [Ativan] 1 mg PO NOW STA
09/23/24 11:05
Iohexol [Omnipaque] See Protocol PO NOW STA
09/23/24 11:22
CT Abd/Pel (IV only)-DH only Urgent
Comment: unable to tolerate PO contrast d/t vomiting
Reason For Exam: abd pain/vomiting
09/23/24 12:14
Complete Blood Count/With Diff Urgent
Lactic Acid Q4H
Comment: CANCEL 2nd LACTIC ACID IF 1st LACTIC ACID IS LESS THAN 2
09/23/24 12:17
Lorazepam [Ativan] 0.5 mg IV NOW STA
Ondansetron Injectable [Zofran] 4 mg IV NOW STA
09/23/24 12:46
Lorazepam [Ativan] 1 mg IV NOW STA
09/23/24 13:01
Comprehensive Metabolic Panel Urgent
Lipase Urgent
09/23/24 13:16
Lactated Ringers [Lr] 1,000 ml IV BOLUS
09/23/24 14:05
Flumazenil [Romazicon] 0.2 mg IV NOW STA
09/23/24 14:57
NG Tube [GI tube insertion- Treatment] ONCE
09/23/24 15:27
Lactic Acid Q4H
Comment: CANCEL 2nd LACTIC ACID IF 1st LACTIC ACID IS LESS THAN 2
09/23/24 15:35
Flumazenil [Romazicon] 0.2 mg IV NOW STA
09/23/24 17:01
Gastrointestinal Tubes As Directed
Type: [place] sump
To suction?: Yes
Type of suction: Low intermittent
Irrigate tube?: Yes
Irrigant: Tap Water
Frequency: Q4H
Amount in mls: 30
Irrigation Directions: Irrigate Q4H and PRN
Comment: 16fr [place] sump
09/24/24 06:00
CR Chest Single View IN AM
Comment:
Reason For Exam: GOO, s/p NGT placement
09/24/24 08:00
Pantoprazole [Protonix IV] 40 mg IV DAILY
Abnormal Lab Results
09/23/24 09/23/24 09/23/24
12:14 13:01 15:27
WBC 13.4 H 10^3/uL
(4.8-10.8)
RBC 5.62 H 10^6/uL
(4.20-5.40)
Hgb 17.0 H g/dL
(12.0-16.0)
Hct 49.4 H %
(37.0-47.0)
MPV 10.5 H fL
(7.4-10.4)
Abs Immat Gran (auto) 0.1 H 10^3/uL
(0-0.05)
Absolute Neuts (auto) 11.7 H 10^3/uL
(1.4-6.5)
Absolute Lymphs (auto) 0.7 L 10^3/uL
(1.2-3.4)
Absolute Monos (auto) 0.9 H 10^3/uL
(0.1-0.6)
Neutrophils % 87.7 H %
(42.2-75.2)
Lymphocytes % 4.9 L %
(20.5-51.1)
BUN 21 H mg/dl
(7-17)
Creatinine 1.4 H mg/dL
(0.6-1.0)
Glucose 150 H mg/dl
(70-99)
Lactic Acid 3.7 H mmol/L 2.8 H mmol/L
(0.7-2.0) (0.7-2.0)
Calcium 10.8 H mg/dl
(8.4-10.2)
09/23/24 12:14
09/23/24 13:01
Vital Signs
Initial and Last Documented VS:
Initial Vital Signs
Temp Pulse Resp BP Pulse Ox
98.9 F 112 18 165/101 96
09/23/24 07:58 09/23/24 07:58 09/23/24 07:58 09/23/24 07:58 09/23/24 07:58
Last Documented Vital Signs
Temp Pulse Resp BP Pulse Ox
98.5 F 114 25 177/98 100
09/23/24 11:15 09/23/24 16:00 09/23/24 16:00 09/23/24 16:00 09/23/24 16:00
MDM/Problems Addressed
MDM/Problems Addressed:
Ultimately the patient was found to have a recurrent gastric volvulus/gastric outlet obstruction due to large paraesophageal hernia. NG tube was placed with greater than 2 L of gastric output suctioned. Unfortunately due to the patient's severe
agitation and refusal to comply with recommended aspects of care she did require IV benzodiazepines however clearly the dosage amount was too high and she had significant respiratory suppression that resulted in administration of flumazenil. Her
respiratory status dramatically improved after NG tube was placed. General surgery consulted on the patient and initially recommended for transfer to a tertiary care hospital however the patient and her declined surgery and declined
transfer thus she will be admitted to the hospitalist service
*Critical Care Note
Total Time (30-74mins, 75-104mins- exclusive of procedures): Not Applicable
Update Note
Update Note:
1145: Pt continues to refuse IV/lab draw at this time. She is aware of the fact that she requires labs and IV due to need for workup of suspected gastric outlet obstruction. She is anxious about pain with venipuncture causing significant delay in
care
1400: Pt noted to be somnolent and tachypneic. Having difficulty arousing pt. Likely excessive administration of benzodiazepine...given 0.2mg flumazenil with rapid improvement in mentation and respiratory status. Lungs CTAB.
ED Attending Note
-
Portions of this chart may have been created with voice recognition software.� Occasional wrong word or��sound alike� substitutions may have occurred due to the inherent limitations of voice recognition software.
Discharge Plan
Departure
Patient Disposition: Admit
Date of Disposition: 09/23/24
Time of Disposition: 16:27
Admit to: Med/Surg
Presentation/result/management discussed w/ accepting MD/DO: Hospitalist
Discharge Problem:
Gastric outlet obstruction, Volvulus of stomach
Prescriptions:
No Action
diphenhydramine HCl [Benadryl] 25 mg Capsule
25 mg PO BID
fluticasone propionate 50 mcg/actuation [place],Suspension
1 spray INTRANASAL BID
tolterodine 4 mg Capsule,Extended Release 24hr
4 mg PO DAILY
spironolactone 25 mg Tablet
25 mg PO DAILY
calcium carbonate 500 mg calcium (1,250 mg) Tablet
500 mg PO DAILY
ascorbic acid (vitamin C) [Vitamin C] 500 mg Tablet
500 mg PO DAILY
pseudoephedrine-guaifenesin [Mucinex D Maximum Strength] 120-1,200 mg Tablet Extended Release 12 Hr
1 tab PO Q12H
azelastine 137 mcg (0.1 %) [place],Non-Aerosol
1 spray INTRANASAL BID
albuterol sulfate 90 mcg/actuation [place] Aerosol Inhaler
2 puff INHALATION R Q6HPRN PRN (Reason: SOB)
lysine 500 mg Tablet
500 mg PO DAILY
elderberry fruit 200 mg Capsule
200 mg PO DAILY
lutein 20 mg Capsule
20 mg PO DAILY
cholecalciferol (vitamin D3) [Vitamin D3] 25 mcg (1,000 unit) Tablet
25 mcg PO DAILY
biotin 5 mg Tablet
5 mg PO DAILY
Tart Chandra [id number] mg Capsule
1 cap PO DAILY
Arnuity Ellipta 100 mcg/actuation Blister With Device
1 inh INHALATION R DAILY
Fermented Beets
1 cap PO DAILY
pantoprazole [Protonix] 40 mg tablet,delayed release (DR/EC)
40 mg PO DAILY Qty: 30 2RF
Referrals:
UNKNOWN - PT DOES,NOT KNOW [Family Provider] -
Interventions
Interventions:
*Risk Screen - Suicide Last Done: 09/23/24 07:58
*General Assessment Last Done: 09/23/24 07:58
*Neglect/Abuse Screening Last Done: 09/23/24 07:58
ED- Fall Risk Assessment Last Done: 09/23/24 11:15
*ED COVID-19 Vaccine History Last Done: 09/23/24 11:15
RI-Ersrzv-Oczsfndbyk Assessment Last Done: 09/23/24 11:15
Discharge Date and Time
Print Language: PERSIAN
--- NOTE | 2024-09-23 11:05 | EDRN ---
Cedric LORENZO currently at the pts bedside speaking with the pt
[2024-09-23] MEDS: OMNIPAQUE 50 ML PO (11:13)
[2024-09-23] MEDS: ATIVAN 1 MG PO (11:13)
--- NOTE | 2024-09-23 11:20 | EDRN ---
the pt stated to Cedric LORENZO and this RN, 'now before you go poking around for blood and stuff i want my ativan, and i don't want an iv for a while, like you need to wait until it kicks in', this RN notified Cedric LORENZO, the pt stated to this RN,
'You can't try for a half hour', will continue to monitor the pt closely
--- NOTE | 2024-09-23 11:33 | EDRN ---
the pt started to vomit shortly after starting to drink PO contrast, this RN notified Cedric LORENZO and was instructed to have the pt stop drinking
--- NOTE | 2024-09-23 11:43 | EDRN ---
the pt is currently refusing a PIV and blood draw, the pt is stating that, 'I don't feel comfortable with it right now', this RN notified Cedric Dos Santos
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
--- NOTE | 2024-09-23 11:59 | EDRN ---
Cedric LORENZO was brought to the pts bedside to speak with the pt
--- NOTE | 2024-09-23 12:04 | EDRN ---
the pt is verbally consenting to allow this RN to place a PIV and draw blood, the pt wants noted in the chart that, 'I am just terrified and make sure you're fast when you do it'
--- NOTE | 2024-09-23 12:15 | EDRN ---
labs drawn and sent
--- NOTE | 2024-09-23 12:16 | EDRN ---
this RN was speaking with the pt and the pts bedside and the pt notified this RN that she was anxious and felt like she was going to have a panic attack and stated, 'I want ativan before i panic', this RN notified the provider, Ativan IV will be
ordered
[2024-09-23] MEDS: ATIVAN 0.5 MG IV (12:22)
[2024-09-23] MEDS: ZOFRAN 4 MG IV (12:22)
[2024-09-23 12:29] LABS: % Basophils 0.1 % (0-2); % Immature Granulocytes 0.4 % (0-0.5); % Lymphocytes 4.9 % (20.5-51.1); % Monocytes 6.9 % (1.7-9.3); % Neutrophils 87.7 % (42.2-75.2); Absolute Immature Granulocytes 0.1 10^3/uL (0-0.05); Absolute Lymphocytes 0.7 10^3/uL (1.2-3.4); Absolute Monocytes 0.9 10^3/uL (0.1-0.6); Absolute Neutrophils 11.7 10^3/uL (1.4-6.5); Hematocrit 49.4 % (37.0-47.0); Mean Corp Hgb Conc. 34.4 g/dL (33.0-37.0); Mean Corpuscular Hgb 30.2 pg (27.0-31.0); Mean Corpuscular Volume 87.9 fL (81.0-99.0); Mean Platelet Volume 10.5 fL (7.4-10.4); Nucleated Red Blood Cells % 0 %; Platelet Count 305 10^3/uL (130-400); Red Blood Cell Count 5.62 10^6/uL (4.20-5.40); Red Cell Dist. Width 13.8 % (11.5-14.5); White Blood Cell Count 13.4 10^3/uL (4.8-10.8)
--- NOTE | 2024-09-23 12:41 | EDRN ---
the lab called and hemolyzed the pts labs, this RN will speak to the pt regarding redrawing labs
--- NOTE | 2024-09-23 12:42 | EDRN ---
this RN explained to the pt that labs need to be drawn again and this RN apologized to the pt for the pts inconvenience and the pt stated to this RN, 'Well i need more ativan then i will not let you draw labs without getting more ativan to relax
me', this RN notified Cedric LORENZO and will place and order for IV ativan, this RN apologized to the pt again for the inconvenience
[2024-09-23 12:45] LABS: Lactic Acid 3.7 mmol/L (0.7-2.0)
[2024-09-23] MEDS: ATIVAN 1 MG IV (12:51)
--- NOTE | 2024-09-23 12:59 | EDRN ---
the pt was straight stuck by this RN to obtain labs
--- NOTE | 2024-09-23 13:15 | EDRN ---
this RN approached the pt bedside and noticed the pt vomiting into vomit bag, provider notified
[2024-09-23] MEDS: LR 1000 IV (13:39)
--- NOTE | 2024-09-23 13:55 | EDRN ---
the pt continues to vomit and dry heave, the pt is attempting to pull off her gown and is stating to this RN, 'I don't want to be here anymore, i want to go home', this RN notified Cedric LORENZO, this RN assisted the pt with putting her gown back on
[2024-09-23] MEDS: ROMAZICON 0.2 MG IV ×2 (14:09→15:39)
--- NOTE | 2024-09-23 14:09 | EDRN ---
this RN approached the pts bedside in [facility], this RN noticed that the pt had increased WOB and the pt stated that she was short of breath, this RN checked the pts Sp02 and the pts Sp02 was 85%, this RN placed the pt on 6L NC and the pts Sp02 came
up to 100%, this RN also noticed that the pt was tachycardic and hypertensive, this RN brought Cedric LORENZO to the pts bedside and notified the charge nurse that the pt needed a room, this RN brought the pt via stretcher to ED Bed #32 with Cedric Dos Santos
PA, this RN placed a LFA #20 PIV and administered Romazicon 0.2mg IV with Cedric LORENZO at the pts bedside, the pt now states that she is not short of breath
[2024-09-23 14:32] LABS: ALT (SGPT) 20 U/L (0-35); AST (SGOT) 26 U/L (14-36); Alkaline Phosphatase 114 U/L (38-126); Blood Urea Nitrogen 21 mg/dl (7-17); Calcium 10.8 mg/dl (8.4-10.2); Carbon Dioxide 27 mmol/L (22-30); Chloride 99 mmol/L (98-107); Estimated Creatinine Clearance 33 ml/min; Glucose 150 mg/dl (70-99); Lipase 44 U/L (23-300); Potassium 4.1 mmol/L (3.5-5.1); Sodium 144 mmol/L (135-145); Total Bilirubin 1.1 mg/dl (0.2-1.3); Total Protein 8.1 g/dl (6.3-8.2); eGFR 39.23
[2024-09-23 16:25] LABS: Lactic Acid 2.8 mmol/L (0.7-2.0)
--- NOTE | 2024-09-23 16:33 | CON.GS ---
Addendum entered and electronically signed by Jame Crisostomo MD 09/24/24 07:32:
I saw and examined the patient independently.
The Wind Farm Designer's note was reviewed and I agree with the note, assessment and plan except where noted below.
Comment: This is a 73-year-old female known to the general surgery service for recent admission for gastric outlet obstruction secondary to a massive type IV hiatal hernia with the majority of her stomach in the right chest cavity extending to the
level of the great vessels. She was managed nonoperatively and discharged in August on a full liquid diet with plans to either follow-up at [facility] or to a tertiary care center given the size of this hernia. Today she is accompanied with her
who offers little insight. NG tube placed with over 2 L of reddish-brown output the patient is somewhat hypoxic and having somewhat labored breathing she is also somewhat lethargic after recently receiving flumazenil so was unable to get
good history or communicate options with her well.
Ultimately given how quickly this is recurred and become symptomatic I do feel a surgical intervention is warranted, either a hiatal hernia repair or at the very least a gastropexy. Either way, I believe this should be undertaken at a tertiary
center.
Continue NG tube to low intermittent wall suction.
N.p.o., IV fluids, no antibiotics required.
General surgery will continue to follow
Original Note:
Medical History
-
Chief Complaint: Vomiting
History of Present Illness:
Ms Landry is a 73 yo female who has a h/o asthma, OAB, GERD and htn with recent admission for GOO from very large hiatal hernia (09/06/24-09/10/24) who presents through the ED with recurrent vomiting and epigastric pain. She was discharged in
August on a full liquid diet and it was recommended that she follow at [facility] or other tertiary care center for repair of the hernia given the size and involvement of the thoracic cavity. She is currently a poor historian due to the acuity of her
illness. NGT was placed at bedside just prior to exam with 2L of brown fluid drained into suction container already. She is lethargic as she has just received flumazenil. Hypoxic to 84% on RA with cyanosis noted. Offers no other complaints.
Past Medical History
Past Medical History: Asthma, GERD, HTN and Other (Large Hiatal hernia, OAB)
Past Surgical History: Orthopedic (ankle surgery as a child) and Other (wisdom teeth)
Social History
Tobacco: Non-Smoker
Alcohol: None
Personal:
Living: With Family
Family History
Family History: Reviewed & Not Pertinent
Allergies / Home Medications
Allergy/AdvReac Type Severity Reaction Status Date / Time
peanut Allergy Unknown Verified 09/23/24 07:58
Penicillins Allergy Anaphylaxis Verified 09/23/24 07:58
shellfish derived Allergy Unknown Verified 09/23/24 07:58
tree nut Allergy Nausea / Verified 09/23/24 07:58
Vomiting
�Medication �Instructions �Recorded �Confirmed �Type
Fermented Beets 1 cap PO DAILY 09/06/24 09/06/24 History
albuterol sulfate 90 mcg/actuation 2 puff inhalation R Q6HPRN PRN SOB 09/06/24 09/06/24 History
aerosol inhaler
ascorbic acid (vitamin C) 500 mg 500 mg PO DAILY 09/06/24 09/06/24 History
tablet (Vitamin C)
azelastine 137 mcg (0.1 %) nasal 1 spray intranasal BID 09/06/24 09/06/24 History
spray
biotin 5 mg tablet 5 mg PO DAILY 09/06/24 09/06/24 History
calcium carbonate 500 mg PO DAILY 09/06/24 09/06/24 History
cholecalciferol (vitamin D3) 25 25 mcg PO DAILY 09/06/24 09/06/24 History
mcg (1,000 unit) tablet (Vitamin
D3)
diphenhydramine HCl 25 mg capsule 25 mg PO BID 09/06/24 09/06/24 History
(Benadryl)
elderberry fruit 200 mg capsule 200 mg PO DAILY 09/06/24 09/06/24 History
fluticasone furoate 100 1 inh inhalation R DAILY 09/06/24 09/06/24 History
mcg/actuation blister powder for
inhalation (Arnuity Ellipta)
fluticasone propionate 50 1 spray intranasal BID 09/06/24 09/06/24 History
mcg/actuation nasal
spray,suspension
lutein 20 mg capsule 20 mg PO DAILY 09/06/24 09/06/24 History
lysine 500 mg tablet 500 mg PO DAILY 09/06/24 09/06/24 History
pseudoephedrine-guaifenesin ER 120 1 tab PO Q12H 09/06/24 09/06/24 History
mg-1,200 mg tab,extend release
12hr (Mucinex D Maximum Strength)
spironolactone 25 mg tablet 25 mg PO DAILY 09/06/24 09/06/24 History
tolterodine 4 mg capsule,extended 4 mg PO DAILY 09/06/24 09/06/24 History
release 24 hr
vit C 30 mg-s.chandra 250 mg-celery 1 cap PO DAILY 09/06/24 09/06/24 History
seed 75 mg-grape seed extrt
capsule (Tart Chandra)
pantoprazole 40 mg tablet,delayed 40 mg PO DAILY #30 tabs 09/10/24 Rx
release (Protonix)
Review of Systems
-
History Source: Patient and Family
All other systems: Negative unless noted
A 10 point review of systems was completed, and was negative except as per HPI.
Physical Exam
Vital Signs
Temp Pulse Resp BP Pulse Ox
98.5 F 115 26 168/101 100
09/23/24 11:15 09/23/24 14:01 09/23/24 14:01 09/23/24 14:00 09/23/24 14:01
09/22/24 09/23/24 09/24/24
06:59 06:59 06:59
Actual Weight 78.9 kg
Body Mass Index (BMI) 32.9
Lab Results
09/23/24 12:14
09/23/24 13:01
WBC 13.4 10^3/uL (4.8-10.8) H 09/23/24 12:14
Hgb 17.0 g/dL (12.0-16.0) H 09/23/24 12:14
Hct 49.4 % (37.0-47.0) H 09/23/24 12:14
Plt Count 305 10^3/uL (130-400) 09/23/24 12:14
Abs Immat Gran (auto) 0.1 10^3/uL (0-0.05) H 09/23/24 12:14
Neutrophils % 87.7 % (42.2-75.2) H 09/23/24 12:14
Physical Exam
General: Other (ill appearing); Negative No Apparent Distress
HEENT: Normocephalic and Other (circumoral cyanosis)
Respiratory: Non Labored Respirations
GI: Soft, Non Tender and Non Distended
Skin: Warm
Neuro: Sedated
Data Reviewed
-
CT Scan: Image Personally Visualized and interpreted, Report Reviewed by me, Discussed with Nurse, Discussed with Patient and Discussed with Family
Labs: Labs Reviewed by me, Discussed with Physician, Discussed with Patient and Discussed with Family
Old Records: Reviewed
Assessment / Plan
-
73 yo female who has a h/o asthma, OAB, GERD and htn with recent admission for GOO from very large type IV hiatal hernia (09/06/24-09/10/24) who presents through the ED with recurrent vomiting and epigastric pain. She was discharged at that time on a
full liquid diet and it was recommended that she follow at [facility] or other tertiary care center for repair of the hernia given the size and involvement of the thoracic cavity. CT imaging with recurrent GOO secondary to the hernia which is occupying
most of the right chest. Hypoxic, tachycardic, bp stable.
NGT placed for immediate return of approximately 2L of fluid
Recommend transfer to [facility] for surgical evaluation and tentative repair of the hernia there. Patient is adamant that she does not want surgery and is declining transfer at this time. Will continue with nonoperative measures with decompression via
NGT.
--Continue NGT decompression
--NPO
--PPI for GI prophylaxis
Medical management as per hospitalist team
--- NOTE | 2024-09-23 19:28 | HPS.HSE ---
Family Physician
-
Family Physician: NOT KNOW UNKNOWN - PT DOES
Chief Complaint
-
abdominal pain and vomiting
History of Present Illness
The patient is a 73 yo woman with PMH significant for large hiatal hernia, recent DC from here (09/06 to 09/10) due to a large sliding-type hiatal hernia with complete intrathoracic stomach associated with ongoing axial volvulus and gastric outlet
obstruction, asthma, GERD, treated conservatively at that time, who presents with recurrent vomiting and epigastric pain. She was very agitated when she arrived in the ED, takes Ativan at home, and was asking for Ativan. She received oral Ativan in
the ED first, that she immediately vomited, and then a total of 1.5 mg IV Ativan in the ED (0.5 IV followed by 1.0 IV), and became lethargic. She received IV Flumazenil 0.2 mg (twice), and woke up more. Surgery saw the patient in the ED. After
reviewing the patient's images, they recommended transfer for Thoracic Surgery consultation for surgical intervention. The family is refusing surgery at this time. NG-tube was placed in the ED, with over 2.5 liters output of brown liquid fluid.
The patient is altered during this history and physical, and unable to answer questions. Respiratory status is stable.
Medical History
Past Medical History
Past Medical History: Reports Asthma, GERD, HTN and Other (overactive bladder, obesity w BMI 33)
Past Surgical History: Reports None
Social History
Tobacco: Non-smoker
Alcohol: None
Family History
Family History: Not pertinent
Allergies / Home Medications
Allergies reflects when Allergies were last updated in [employer].
Home Medications with original date entered in [employer]
Allergy/Medication List:
Allergies
Allergy/AdvReac Type Severity Reaction Status Date / Time
peanut Allergy Unknown Verified 09/23/24 07:58
Penicillins Allergy Anaphylaxis Verified 09/23/24 07:58
shellfish derived Allergy Unknown Verified 09/23/24 07:58
tree nut Allergy Nausea / Verified 09/23/24 07:58
Vomiting
Home Medications
Fermented Beets 1 cap PO DAILY 09/06/24
albuterol sulfate 90 mcg/actuation aerosol inhaler 2 puff inhalation R Q6HPRN PRN SOB 09/06/24
ascorbic acid (vitamin C) 500 mg tablet (Vitamin C) 500 mg PO DAILY 09/06/24
azelastine 137 mcg (0.1 %) nasal spray 1 spray intranasal BID 09/06/24
biotin 5 mg tablet 5 mg PO DAILY 09/06/24
calcium carbonate 500 mg PO DAILY 09/06/24
cholecalciferol (vitamin D3) 25 mcg (1,000 unit) tablet (Vitamin D3) 25 mcg PO DAILY 09/06/24
diphenhydramine HCl 25 mg capsule (Benadryl) 25 mg PO BID 09/06/24
elderberry fruit 200 mg capsule 200 mg PO DAILY 09/06/24
fluticasone furoate 100 mcg/actuation blister powder for inhalation (Arnuity Ellipta) 1 inh inhalation R DAILY 09/06/24
fluticasone propionate 50 mcg/actuation nasal spray,suspension 1 spray intranasal BID 09/06/24
lutein 20 mg capsule 20 mg PO DAILY 09/06/24
lysine 500 mg tablet 500 mg PO DAILY 09/06/24
pseudoephedrine-guaifenesin ER 120 mg-1,200 mg tab,extend release 12hr (Mucinex D Maximum Strength) 1 tab PO Q12H 09/06/24
spironolactone 25 mg tablet 25 mg PO DAILY 09/06/24
tolterodine 4 mg capsule,extended release 24 hr 4 mg PO DAILY 09/06/24
vit C 30 mg-s.chandra 250 mg-celery seed 75 mg-grape seed extrt capsule (Tart Chandra) 1 cap PO DAILY 09/06/24
pantoprazole 40 mg tablet,delayed release (Protonix) 40 mg PO DAILY #30 tabs 09/10/24
Review of Systems
-
Unable to obtain full review of systems at this time due to: Other (patient altered following medications in ED)
History Source: Other (ED PA, nurse)
Physical Exam
Vital Signs
Vital Signs
Temp Pulse Resp BP Pulse Ox
98.5 F 88 21 136/113 100
09/23/24 11:15 09/23/24 18:00 09/23/24 18:00 09/23/24 18:00 09/23/24 16:00
Physical Exam
General: Appears Chronically Ill, Obese and Other
HEENT: NormoCephalic, Anicteric and Other (dry mucous membranes)
Respiratory: Clear and Non Labored Respirations
Cardiac: S1/S2 and Regular Rhythm
GI: Soft, Non Tender and Non Distended
Musculoskeletal: No Clubbing, No Cyanosis and No Edema
Skin: Warm and Dry
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
Psych: Confused
Laboratory Results
-
09/23/24 12:14
09/23/24 13:01
Laboratory Results
Lactic Acid 2.8 mmol/L (0.7-2.0) H 09/23/24 15:27
Total Bilirubin 1.1 mg/dl (0.2-1.3) 09/23/24 13:01
AST 26 U/L (14-36) 09/23/24 13:01
ALT 20 U/L (0-35) 09/23/24 13:01
Alkaline Phosphatase 114 U/L (38-126) 09/23/24 13:01
Lipase 44 U/L (23-300) 09/23/24 13:01
Data Reviewed
-
CT Scan: Image Personally Visualized and interpreted and Report Reviewed by me
Lab Data: Labs Reviewed by me
Impression/Plan
-
IMPRESSION:
The patient is a 73 yo woman with PMH significant for large hiatal hernia, recent DC from here (09/06 to 09/10) due to a large sliding-type hiatal hernia with complete intrathoracic stomach associated with ongoing axial volvulus and gastric outlet
obstruction, asthma, GERD, treated conservatively at that time, who presents with recurrent vomiting and epigastric pain. She was very agitated when she arrived in the ED, takes Ativan at home, and was asking for Ativan. She received oral Ativan in
the ED first, that she immediately vomited, and then a total of 1.5 mg IV Ativan in the ED (0.5 IV followed by 1.0 IV), and became lethargic. She received IV Flumazenil 0.2 mg (twice), and woke up more. Surgery saw the patient in the ED. After
reviewing the patient's images, they recommended transfer for Thoracic Surgery consultation for surgical intervention. The family is refusing surgery at this time per Surgeon discussion. NG-tube was placed in the ED, with over 2.5 liters output of
brown liquid fluid.
The patient is altered during this history and physical, and unable to answer questions. Respiratory status is stable.
#Gastric outlet obstruction due to a large hiatal hernia, extending into the right hemithorax and occupying much of the right hemithorax.
-enlarged fluid-filled stomach within the central and right hemithorax.
-gastric antrum and the first portion of the duodenum appear to be superior to the diaphragm
-dilated esophagus results in mass effect upon the trachea in the upper chest
-Dilated stomach also results in compression of narrowing of the right mainstem bronchus
-mass effect upon the heart by the dilated stomach
#Altered mental status possibly due to polypharmacy s/p Ativan and Flumazenil
-CT head pending
-
#Incidental finding:Thickened low-density within the central uterus, measuring up to 16 mm in AP dimension, possible central fibroid, this raises concern for a proliferative process of the endometrium with endometrial thickening. Further evaluation
is advised, a letter is being sent to the patient's house per radiology noted, and rec is for pelvic ultrasound. This can be performed outpatient
-this will need to be discussed with family tomorrow, when the patient is more awake and when returns
#GERD
-PPI
#asthma, stable
#Overactive bladder
#Obesity w BMI 33
PLAN:
-NG-tube placed to low continuous wall suction
-Surgery consultation placed, who recommended transfer to [place] for Thoracic Sx consultation, however family refused as this time
-NPO, IVF
-Surgery will discuss plan options with family tomorrow
-PPI for prophylaxis
DVT proph
Full Code
[2024-09-23 20:31] LABS: Creatine Phosphokinase 32 U/L (30-135); Magnesium 2.3 mg/dl (1.6-2.3)
[2024-09-23 21:06] LABS: TSH 2.83 uIU/ml (0.47-4.68)
[2024-09-23] MEDS: NSS 1000 IV (21:59)
[2024-09-24] VITALS (15 sets, daily range): BP systolic 132–163; BP diastolic 51–78
[2024-09-24 00:20] LABS: Lactic Acid 1.6 mmol/L (0.7-2.0)
[2024-09-24 07:24] LABS: % Basophils 0.2 % (0-2); % Eosinophils 0.5 % (0-6); % Immature Granulocytes 1.5 % (0-0.5); % Lymphocytes 15.5 % (20.5-51.1); % Monocytes 11.2 % (1.7-9.3); % Neutrophils 71.1 % (42.2-75.2); Absolute Eosinophils 0.1 10^3/uL (0-0.7); Absolute Immature Granulocytes 0.2 10^3/uL (0-0.05); Absolute Lymphocytes 1.5 10^3/uL (1.2-3.4); Absolute Monocytes 1.1 10^3/uL (0.1-0.6); Hematocrit 38.1 % (37.0-47.0); Hemoglobin 12.6 g/dL (12.0-16.0); Mean Corp Hgb Conc. 33.1 g/dL (33.0-37.0); Mean Corpuscular Hgb 30.6 pg (27.0-31.0); Mean Corpuscular Volume 92.5 fL (81.0-99.0); Mean Platelet Volume 10.6 fL (7.4-10.4); Nucleated Red Blood Cells % 0 %; Platelet Count 189 10^3/uL (130-400); Red Blood Cell Count 4.12 10^6/uL (4.20-5.40); Red Cell Dist. Width 13.8 % (11.5-14.5); White Blood Cell Count 9.8 10^3/uL (4.8-10.8)
[2024-09-24 07:37] LABS: ALT (SGPT) 19 U/L (0-35); AST (SGOT) 29 U/L (14-36); Albumin 3.4 g/dl (3.5-5.0); Alkaline Phosphatase 82 U/L (38-126); Blood Urea Nitrogen 26 mg/dl (7-17); Calcium 8.8 mg/dl (8.4-10.2); Carbon Dioxide 35 mmol/L (22-30); Chloride 103 mmol/L (98-107); Estimated Creatinine Clearance 33 ml/min; Glucose 84 mg/dl (70-99); Magnesium 2.3 mg/dl (1.6-2.3); Potassium 3.6 mmol/L (3.5-5.1); Sodium 143 mmol/L (135-145); Total Bilirubin 0.8 mg/dl (0.2-1.3); Total Protein 5.8 g/dl (6.3-8.2); eGFR 39.23
[2024-09-24] MEDS: PROTONIX IV 40 MG IV (08:17)
[2024-09-24 08:27] LABS: Urine Albumin 3+ (Neg - Trace); Urine Bilirubin Negative (Negative); Urine Character Clear (Clear); Urine Color Yellow; Urine Glucose Negative (Negative); Urine Ketone Negative (Negative); Urine Leukocyte 3+ (Negative); Urine Nitrite Negative (Negative); Urine Occult Blood 4+ (Negative); Urine Specific Gravity 1.015 (<1.030); Urine Urobilinogen Negative (Neg - 1+)
[2024-09-24 08:45] LABS: Urine Squamous Cell >30 /LPF (Few)
[2024-09-24 08:46] LABS: Urine Bacteria Few (Negative); Urine White Cell 30-40 /HPF (0-5)
[2024-09-24] MEDS: D5LR 1000 IV ×2 (09:47→20:14)
--- NOTE | 2024-09-24 11:04 | W.PN.GS2 ---
Today's Communication / Plan
-
-- NGT decompression for today
-- Trial of clears tomorrow with potential for discharge at that time
Assessment / Plan
-
Patient is a 73 yo F p/w GOO secondary to a large type IV paraesophageal hernia
Options for management were again reviewed with the patient; specifically we discussed surgical management versus medical management with dietary modifications. Mrs. Landry believes that her current issues were related to drinking too much
liquids too fast. We discussed that given her recurrent issues despite being on a liquid diet, she is at increased risk for recurrent issues - recommend transfer to a tertiary care center and surgical management. We discussed that continued
medical management with a liquid diet exposes her to risks of recurrent nausea and vomiting with potential aspiration/pneumonia events. Patient acknowledges understanding, but states that she would like to trial medical management again at this
time. Recommend continued NGT decompression for today. Can trial liquid diet tomorrow. All questions answered.
-- NGT decompression for today
-- Trial of clears tomorrow with potential for discharge at that time
Subjective Data
-
Date of Service: September 24, 2024
Feels improved. No nausea or vomiting. No chest or abdominal pain.
Objective Data
-
Intake and Output
09/23/24 09/24/24 09/25/24
06:59 06:59 06:59
Output Total 1999 350 / 350
Balance -1999 / -2000 -350 / -350
Output:
Gastrointestinal tube output ( 1999
Total)
Urine, Voided 350 / 350
Vital Signs
Temp Pulse Resp BP Pulse Ox
98.1 F 78 23 148/70 99
09/24/24 06:30 09/24/24 10:49 09/24/24 10:49 09/24/24 10:49 09/24/24 10:49
Lab Results
09/24/24 06:28
09/24/24 06:
Calcium 8.8 mg/dl (8.4-10.2) D 09/24/24:
Magnesium 2.3 mg/dl (1.6-2.3) 09/24/24 06:
Total Bilirubin 0.8 mg/dl (0.2-1.3) 09/24/24 06:
AST 29 U/L (14-36) 09/24/24:
ALT 19 U/L (0-35) 09/24/24:
Alkaline Phosphatase 82 U/L (38-126) 09/24/24:
Total Protein 5.8 g/dl (6.3-8.2) L D 09/24/24 06:28
Albumin 3.4 g/dl (3.5-5.0) L D 09/24/24 06:28
Physical Exam
-
Gen: NAD
HEENT: NGT with dark bilious output
Abd: soft, NT/ND, non-peritoneal
Patient has a charlton catheter: No
Patient has a central line: No
--- NOTE | 2024-09-24 13:05 | W.PN.HOSP.TC ---
Today's Communication/Plan
-
IV fluid
Follow creatinine
NG tube decompression
Assessment / Plan
Assessment / Plan
73-year-old female with large hiatal hernia came in with abdominal pain vomiting . She was here recently with similar symptoms patient had an NG tube placed and surgery consulted. Over the next 24 hours she improved NG tube was discontinued diet
was advanced. She was recommended to follow up with tertiary facility at that time to get evaluated for surgery.
In the ER patient was agitated and vomited after the Ativan in the ER she became lethargic and received flumazenil and woke up. Surgery evaluated the patient recommended transfer to thoracic surgery for evaluation. Family refused surgery NG tube
was placed with 2.5 L of fluid out.
CT head-no acute abnormalities. Atrophy and moderate vessel ischemic changes old infarct in the right caudate nucleus
CT abdomen and pelvis-large hiatal hernia/intrathoracic stomach extending into the right hemithorax and occupying [place] of the right hemithorax. Stomach fluid-filled and distended as well as esophagus findings suggestive of GOL O. Small right
pleural effusion posteriorly. Cholelithiasis.
Awake alert oriented
NG tube
Cardiovascular system S1-S2 appreciated
Chest few rales bilaterally
Abdomen soft, nontender
# Volvulus of the stomach
Large sliding paraesophageal hernia
NG tube with 2.5 L of fluid out in the ER
Continue NG tube decompression
Continue PPI
Repeat x-ray elevation right hemidiaphragm NG tube large hiatal hernia in the right lower chest
# Altered mental status likely secondary to polypharmacy
Received Ativan and then flumazenil
CT head-no acute intracranial abnormalities
She is awake alert and back to baseline
# Acute kidney injury-likely secondary to vomiting and prerenal reasons
Continue IV fluids and follow creatinine
# Lactic acidosis-resolved
# Hypertension-hold Aldactone as n.p.o.
# Asthma-on Arnuity Ellipta, as needed nebulizer treatments as outpatient
# Old CVA noted on CT-Aspirin when can take p.o.
# Thickened low-density within the central uterus-likely fibroid-needs outpatient follow-up and ultrasound
# GERD
# Cholelithiasis
# Diverticulosis
# Overactive bladder
# Obesity with a BMI of 32
# Prophylaxis-Lovenox
# Full code
Discussed with patient and at bedside. They are willing to go she will not downtown as outpatient to explore further options. If this requires a thoracotomy then she said that undergo the surgery
Anticipated Discharge: Within 24 hours
Subjective/Interval History
-
Date of Service: September 24, 2024
Objective Data
-
Labs:
Laboratory Results
09/24/24
06:28
WBC 9.8
Hgb 12.6 D
Hct 38.1
Plt Count 189 D
Sodium 143
Potassium 3.6
Chloride 103
Carbon Dioxide 35 H
BUN 26 H
Creatinine 1.4 H
Glucose 84
Calcium 8.8 D
Total Bilirubin 0.8
AST 29
ALT 19
Alkaline Phosphatase 82
Vital Signs:
Vital Signs
Temp Pulse Resp BP Pulse Ox
98.1 F 77 19 156/65 100
09/24/24 06:30 09/24/24 11:00 09/24/24 11:00 09/24/24 11:00 09/24/24 11:18
I&O
09/23/24 09/24/24 09/25/24
06:59 06:59 06:59
Output Total 1999 350 / 350
Balance -1999 / -2000 -350 / -350
[2024-09-24] MEDS: NON-FORMULARY ITEM 1 UNIT NASAL ×2 (13:58→14:01)
--- NOTE | 2024-09-24 14:49 | PTCARENOTE ---
Verbal report provided to Chip Moe. pt awaiting to to be transferred to floor.
[2024-09-24] MEDS: LOVENOX 40 MG SC (18:48)
[2024-09-24] MEDS: NON-FORMULARY ITEM NASAL (22:40)
[2024-09-25] MEDS: D5LR 1000 IV (05:21)
[2024-09-25 07:33] VITALS: BP 164/81
[2024-09-25] MEDS: PROTONIX IV 40 MG IV (07:45)
[2024-09-25] MEDS: NON-FORMULARY ITEM 1 UNIT NASAL ×2 (07:46→07:48)
[2024-09-25] MEDS: ANESTHETIC LOZENGE 1 LOZENGE PO (08:19)
--- NOTE | 2024-09-25 09:06 | PTCARENOTE ---
pt aaox3 states no pain or nausea. ngt in place placement checked and flushed. pt states having sore throat. md made aware lozenge ordered.
[2024-09-25 10:30] LABS: Hematocrit 36.7 % (37.0-47.0); Hemoglobin 12.5 g/dL (12.0-16.0); Mean Corp Hgb Conc. 34.1 g/dL (33.0-37.0); Mean Corpuscular Hgb 30.7 pg (27.0-31.0); Mean Corpuscular Volume 90.2 fL (81.0-99.0); Mean Platelet Volume 10.5 fL (7.4-10.4); Platelet Count 135 10^3/uL (130-400); Red Blood Cell Count 4.07 10^6/uL (4.20-5.40); Red Cell Dist. Width 13.4 % (11.5-14.5); White Blood Cell Count 6.5 10^3/uL (4.8-10.8)
[2024-09-25 10:45] LABS: Blood Urea Nitrogen 18 mg/dl (7-17); Calcium 9.1 mg/dl (8.4-10.2); Carbon Dioxide 25 mmol/L (22-30); Chloride 105 mmol/L (98-107); Estimated Creatinine Clearance 46 ml/min; Glucose 113 mg/dl (70-99); Sodium 138 mmol/L (135-145); eGFR 58.75
[2024-09-25 10:55] VITALS: BP 163/84
--- NOTE | 2024-09-25 11:21 | W.PN.GS2 ---
Today's Communication / Plan
-
NGT clamped
Trial cld
Assessment / Plan
-
Patient is a 73 yo F p/w GOO secondary to a large type IV paraesophageal hernia
Options for management were again reviewed with the patient; specifically we discussed surgical management versus medical management with dietary modifications. Mrs. Landry believes that her current issues were related to drinking too much
liquids too fast. We discussed that given her recurrent issues despite being on a liquid diet, she is at increased risk for recurrent issues - recommend transfer to a tertiary care center and surgical management.
Again discussed that continued medical management with a liquid diet exposes her to risks of recurrent nausea and vomiting with potential aspiration/pneumonia events. Patient acknowledges understanding, but states that she would like to trial
medical management again at this time. Her plan is for more frequent smaller meals. I advised her to stay on liquid diet for now and avoid carbonation. I expressed my doubts that she will be able to manage this without surgery and strongly advised
her to follow up with the [facility] surgeon whose info she has without delay if we are able to DC her.
-- NGT clamped
-- Trial CLD
-- DC on CLD with supplements with recommendation for prompt f/u at [facility] if she tolerates
-- DVT ppx
Subjective Data
-
Date of Service: September 25, 2024
AFVSS, nausea resolved, denies abd pain
Objective Data
-
Intake and Output
09/24/24 09/25/24 09/26/24
06:59 06:59 06:59
Intake Total 90 / 90
Output Total 1999 550 / 550
Balance -1999 -460 / -460
Intake:
Amount instilled into GI Tube ( 90 /
Total)
[place] Sump 90 / 90
Output:
Gastrointestinal tube output ( 1999 200 / 200
Total)
[place] Sump 200 / 200
Urine, Voided 350 / 350
Other:
Number of approximated MODERATE 2
amounts of urine
How many times incontinent 1
MODERATE amount urine
Vital Signs
Temp Pulse Resp BP Pulse Ox
97.6 F 81 22 163/84 94
09/25/24 10:55 09/25/24 10:55 09/25/24 10:55 09/25/24 10:55 09/25/24 10:55
Lab Results
09/25/24 09:55
09/25/24 09:55
Calcium 9.1 mg/dl (8.4-10.2) 09/25/24 09:55
Magnesium 2.3 mg/dl (1.6-2.3) 09/24/24 06:28
Total Bilirubin 0.8 mg/dl (0.2-1.3) 09/24/24 06:28
AST 29 U/L (14-36) 09/24/24 06:28
ALT 19 U/L (0-35) 09/24/24 06:28
Alkaline Phosphatase 82 U/L (38-126) 09/24/24 06:28
Total Protein 5.8 g/dl (6.3-8.2) L D 09/24/24 06:28
Albumin 3.4 g/dl (3.5-5.0) L D 09/24/24 06:28
Physical Exam
-
Gen: NAD
Abd: soft, nt, nd, NGT with minimal output
Patient has a charlton catheter: No
Patient has a central line: No
--- NOTE | 2024-09-25 12:14 | W.PN.HOSP.TC ---
Addendum entered and electronically signed by Sharath Gonsalez MD 09/25/24 15:33:
Toxic metabolic encephalopathy
Addendum entered and electronically signed by Sharath Gonsalez MD 09/25/24 14:51:
NG tube was clamped. Patient tolerated clear liquid diet. Reevaluation patient without any abdominal pain nausea or vomiting. Discussed with general surgery. General surgery recommended DC NG tube and recommend okay for discharge. Patient
understand to follow-up with surgeon at [facility].
More than 30 minutes spent in discharge including
Final examination of the patient
Summarizing hospital stay
Instructions for continuing care to all relevant caregivers
Preparation of discharge records, prescriptions, and referral forms
Total time spent (in minutes): 55
Original Note:
Today's Communication/Plan
-
Clamping NG tube trial
Clear liquid diet started per surgery
Monitor for tolerance
Assessment / Plan
Assessment / Plan
73-year-old female with large hiatal hernia came in with abdominal pain vomiting . She was here recently with similar symptoms patient had an NG tube placed and surgery consulted. Over the next 24 hours she improved NG tube was discontinued diet
was advanced. She was recommended to follow up with tertiary facility at that time to get evaluated for surgery.
In the ER patient was agitated and vomited after the Ativan in the ER she became lethargic and received flumazenil and woke up. Surgery evaluated the patient recommended transfer to thoracic surgery for evaluation. Family refused surgery NG tube
was placed with 2.5 L of fluid out.
CT head-no acute abnormalities. Atrophy and moderate vessel ischemic changes old infarct in the right caudate nucleus
CT abdomen and pelvis-large hiatal hernia/intrathoracic stomach extending into the right hemithorax and occupying Mutch of the right hemithorax. Stomach fluid-filled and distended as well as esophagus findings suggestive of GOL O. Small right
pleural effusion posteriorly. Cholelithiasis.
Awake alert oriented
NG tube without any secretions noted in canister
Cardiovascular system S1-S2 appreciated
Chest few rales bilaterally
Abdomen soft, nontender, nondistended
# Volvulus of the stomach
Large sliding paraesophageal hernia
NG tube with 2.5 L of fluid out in the ER
Continue NG tube decompression
Continue PPI
Repeat x-ray elevation right hemidiaphragm NG tube large hiatal hernia in the right lower chest
Per general surgery clamping trial of clear liquid diet
Of note patient has been recommended by multiple medical professional to follow-up with tertiary care facility as with advanced disease process and most likely will require surgical correction. Patient has refused to undergo surgical management and
continue to states she wants to continue with medical management and dietary modification. Patient has information about [facility] surgeon to follow-up upon discharge
# Altered mental status likely secondary to polypharmacy
Received Ativan and then flumazenil
CT head-no acute intracranial abnormalities
She is awake alert and back to baseline
# Acute kidney injury-likely secondary to vomiting and prerenal reasons
Continue IV fluids and follow creatinine
resolved.
# Lactic acidosis-resolved
# Hypertension-restart Aldactone
# Asthma-on Arnuity Ellipta, as needed nebulizer treatments as outpatient
# Old CVA noted on CT-not on aspirin as outpatient.
# Thickened low-density within the central uterus-likely fibroid-needs outpatient follow-up and ultrasound
# GERD
# Cholelithiasis
# Diverticulosis
# Overactive bladder
# Obesity with a BMI of 32
# Prophylaxis-Lovenox
# Full code
Anticipated Discharge: Within 24 hours
Subjective/Interval History
-
Date of Service: September 25, 2024
States of sore throat
Objective Data
-
Labs:
Laboratory Results
09/25/24
09:55
WBC 6.5
Hgb 12.5
Hct 36.7 L
Plt Count 135 D
Sodium 138
Potassium 4.0
Chloride 105
Carbon Dioxide 25
BUN 18 H
Creatinine 1.0
Glucose 113 H
Calcium 9.1
Vital Signs:
Vital Signs
Temp Pulse Resp BP Pulse Ox
97.6 F 81 22 163/84 94
09/25/24 10:55 09/25/24 10:55 09/25/24 10:55 09/25/24 10:55 09/25/24 10:55
I&O
09/24/24 09/25/24 09/26/24
06:59 06:59 06:59
Intake Total 90 / 90
Output Total 1999 550 / 550
Balance -1999 -460 / -460
[2024-09-25] MEDS: ALDACTONE 25 MG PO (13:35)
--- NOTE | 2024-09-25 14:06 | PN.CDI ---
CDI
- -
CDI:
Physician Documentation Request
Admit Date: 09/23/24 21:06
Dear Doctor Sunshine,
Patient admitted with volvulus of the stomach.
2/5 PN, 'Altered mental status likely secondary to polypharmacy....Received Ativan and then flumazenil.
Based on the above, please clarify in your note the most likely etiology of the altered mental status:
Toxic metabolic encephalopathy
Metabolic encephalopathy
Other
Use of terms such as suspected, likely, concern for, or probable (associated with a specific diagnosis that is being evaluated, monitored, or treated as if it exists) are acceptable and can be coded in the inpatient setting, when documented at the
time of discharge.
Thank you,
Ida CAGLE,RN,CCDS
CDI Specialist
Available via [facility] text
Please use your independent medical judgment in providing your response.
--- NOTE | 2024-09-25 14:19 | W.DCSUMMARY ---
Discharge Summary
Discharge Data
Date of Admission: 09/23/24
Date of Discharge: 09/25/24
-
Pending Results: No
Hospital Course
73-year-old female with large hiatal hernia came in with abdominal pain vomiting. In the ER patient was agitated and vomited after the Ativan in the ER she became lethargic and received flumazenil and woke up. Surgery evaluated the patient
recommended transfer to thoracic surgery for evaluation. Family refused surgery and NG tube was placed with 2.5 L of fluid out. Patient was continued on NG tube intermittent suction. NG tube output continued to decrease. CT head-no acute
abnormalities. Atrophy and moderate vessel ischemic changes old infarct in the right caudate nucleus. CT abdomen and pelvis-large hiatal hernia/intrathoracic stomach extending into the right hemithorax and occupying Mutch of the right hemithorax.
Stomach fluid-filled and distended as well as esophagus findings suggestive of GOLO. Small right pleural effusion posteriorly. Cholelithiasis. Patient also had a significantly elevated creatinine which was deemed secondary to prerenal. Patient
was on IV fluid resuscitation. Patient mentation returned back to baseline. Thickened low-density within the central uterus-likely fibroid-needs outpatient follow-up and ultrasound. NG tube was clamped. Patient tolerated clear liquid diet. Upon
Reevaluation patient without any abdominal pain nausea or vomiting. Discussed with general surgery. General surgery recommended DC NG tube and recommend okay for discharge. Patient understand to follow-up with surgeon at [facility].
Discharge Plan
-
Patient Disposition: Home (Routine Discharge)
Discharge Diagnosis/Procedures: Volvulus of the stomach
Large sliding paraesophageal hernia
Altered mental status likely secondary to polypharmacy
Acute kidney injury-likely secondary to vomiting
Lactic acidosis
Condition: Fair
Diet: Other diet
Additional Diets: liquid diet, frequent small meals, use supplements like ensure or boost
Activity: As tolerated
Driving Restrictions: As prior to admission
Activity Restrictions/Additional Instructions:
You are strongly advised to follow up with the surgeon at [facility] without delay.
Thickened low-density within the central uterus-likely fibroid-needs outpatient follow-up and ultrasound with your non linear editor and or primary doctor
Instructions: Hiatal hernia - Discharge instructions
Referrals:
Mary Joyner, DO [Family Provider] - in less than 1 week
Prescriptions:
Continued
diphenhydramine HCl [Benadryl] 25 mg Capsule
25 mg PO BID
fluticasone propionate 50 mcg/actuation [place],Suspension
1 spray INTRANASAL BID
tolterodine 4 mg Capsule,Extended Release 24hr
4 mg PO DAILY
spironolactone 25 mg Tablet
25 mg PO DAILY
calcium carbonate 500 mg calcium (1,250 mg) Tablet
500 mg PO DAILY
ascorbic acid (vitamin C) [Vitamin C] 500 mg Tablet
500 mg PO DAILY
azelastine 137 mcg (0.1 %) [place],Non-Aerosol
1 spray INTRANASAL BID
albuterol sulfate 90 mcg/actuation Hfa Aerosol Inhaler
2 puff INHALATION R Q6HPRN PRN (Reason: SOB)
lysine 500 mg Tablet
500 mg PO DAILY
elderberry fruit 200 mg Capsule
200 mg PO DAILY
lutein 20 mg Capsule
20 mg PO DAILY
cholecalciferol (vitamin D3) [Vitamin D3] 25 mcg (1,000 unit) Tablet
25 mcg PO DAILY
biotin 5 mg Tablet
5 mg PO DAILY
Tart Chandra [id number] mg Capsule
1 cap PO DAILY
Arnuity Ellipta 100 mcg/actuation Blister With Device
1 inh INHALATION R DAILY
Fermented Beets
1 cap PO DAILY
pantoprazole [Protonix] 40 mg tablet,delayed release (DR/EC)
40 mg PO DAILY Qty: 30 2RF
Azo Yeast Supplement
1 tab PO DAILY
fexofenadine 60 mg Tablet
60 mg PO DAILY
zinc sulfate 50 mg zinc (220 mg) Tablet
50 mg PO DAILY
Probiotic 10 billion cell Capsule
10,000 mmu cells PO DAILY
guaifenesin [Mucinex] 600 mg Tablet Extended Release 12hr
600 mg PO BID
Discontinued
naproxen sodium [Aleve] 220 mg Tablet
220 mg PO BID PRN (Reason: moderate pain)
Discharge Orders:
Discharge Patient (As Directed); Ordered 09/25/24
Ordered By: Sharath Gonsalez
Discharge Date and Time
Print Language: DANISH
--- NOTE | 2024-09-25 14:27 | PTCARENOTE ---
NGT clamped at 1100. Pt tolerating clears well. Ate 100% lunch tray. NGT removed w/o issue.
[2024-09-25 15:04] VITALS: BP 166/84
--- NOTE | 2024-09-25 15:18 | CM ---
Met with pt at bedside
Pt reports she lives with her in a 2 story town home; 2 steps to enter, 14 steps to 2nd fl, + 1/2 bath on FF
Independent at baseline, drives, ambulates without device
DME - none
SNF/HH - no past hx
Has ride at discharge -
PCP - Pepper Mcgrath
Pharm - [facility] - [facility] Na[facility], [place]
Given IMM
Plan - anticipate home no needs when medically ready
[2024-09-25] MEDS: MUCINEX 600 MG PO (15:19)
[2024-09-25] MEDS: CLARITIN 10 MG PO (15:19)
== END 2024-09-25 17:32 | disposition home or self-care (01) | DRG 391 ==
LOC: 3 WEST ACU 21:06
PROVIDERS: Hospitalist; Physician Assistant; ADMITTING PHYSICIAN Internal Medicine; ATTENDING PHYSICIAN Hospitalist; CONSULT PHYSICIAN Surgery; EMERGENCY PHYSICIAN Emergency Medicine
PROC: 0D9670Z Drainage of Stomach with Drainage Device, Via Natural or Artificial Opening (ICD-10-PCS; 2024-09-23)
DX: K31.89 Other diseases of stomach and duodenum (principal); G92.8 Other toxic encephalopathy; E87.20 Acidosis, unspecified; N17.9 Acute kidney failure, unspecified; K31.1 Adult hypertrophic pyloric stenosis; K44.9 Diaphragmatic hernia without obstruction or gangrene
CPT/HCPCS: 70450; 71045; 74177; 80048; 80053; 81003; 81015; 82550; 83605; 83690; 83735; 84443; 85025; 85027; 87086; 96361; 96374; 96375; 96376; 99285; Q9967

== ENCOUNTER → 2025-02-06 13:19 | Outpatient (REF) | payer OTHER, SELFPAY | LOC: RAD 13:19 | PROVIDERS: FAMILY PHYSICIAN Family Medicine | DX: K44.9 Diaphragmatic hernia without obstruction or gangrene (principal) | CPT/HCPCS: 71046 ==